=== PATIENT | female | born 1955 | race Caucasian/White ===

== ENCOUNTER 2017-08-01 11:53 | Emergency (ER) | payer OTHER, BC ==
[2017-08-01 12:00] VITALS: PULSE 74; BMI 26.2
--- NOTE | 2017-08-01 12:26 | PDOC ---
Attending Attestation - HPI HPI: 08/01/17 13:59 Pt is a 62 yo F with no PMHx who presents to the ED with headache for the past 3 days. Patient reports frontal and occipital headache, 8/10 in severity, nonradiating with no associated symptoms. Patient states reports using Tylenol in the past with relief. Note, patients headaches have been more frequent and severe however has changed in character today. Patient reports her headaches are worse at night. Patient has not been able to relieve her headaches with OTC medications and presents to the ED for further evaluation. PCP: Dr. Nascimento - Physicial Exam PE: 08/01/17 13:59 Vitals: Triage Vital signs reviewed General Appearance: no acute distress, well nourished well developed, Head: Atraumatic, normocephalic Neck: Supple;No Nuchal rigidity Chest Wall: Nontender Cardiac: Regular rate and rhythm, no murmurs, no rubs, no gallops, Lungs: Clear to auscultation bilateral, good air movement bilaterally, Abdomen: Soft, nondistended, normal bowel sounds, nontender to palpation Extremities: Full range of motion to all extremities, no cyanosis, clubbing, or edema Skin: Warm and dry, no rashes or lesions, no petechiae - Medical Decision Making 08/01/17 13:59 Documentation prepared by Ginny Rivas, acting as durable medical equipment technician for Dav Benjamin MD, MD/DO. 08/01/17 15:[address] Impression Mild volume loss which is nonspecific without evidence of acute intracranial pathology. Correlate clinically to determine further evaluation and follow-up Reported By: Rusty San MD 08/01/17 1442 <Ginny Rivas - Last Filed: 08/01/17 15:10> - Resident Resident Name: Halle Thomas - ED Attending Attestation I have performed the following: I have examined & evaluated the patient, The case was reviewed & discussed with the resident, I agree w/resident's findings & plan, Exceptions are as noted - Medical Decision Making 08/01/17 16:58 Reevaluation patient feels much better after Benadryl and Reglan. No acute findings on laboratory analysis head CT. Patient provided with outpatient neurologic follow-up Findings, the need for follow-up and strict return instructions discussed with patient. <Dav Benjamin - Last Filed: 08/01/17 16:59>
[2017-08-01] MEDS ORDERED: ACETAMINOPHEN 1000 MG/100 ML VIAL (NON FORMULARY) IVPB ONE (12:39)
--- NOTE | 2017-08-01 12:40 | PDOC ---
History of Present Illness - History of Present Illness Initial Comments: 62 year old female with history of occasional headaches presenting with headache for the past 3-4 days. The headache is a 3/10-7/10 frontal and occipital achy sensation that usually is responsive to Tylenol and Advil but lately has been much worse without great response to these remedies. Of note, the headaches have also slightly changed in presentation in that they are worse in the morning and typically better after her morning walk and towards the end of the day. She also admits to some slight photophobia but no sonophobia. Denies any focal neurological deficit, sob, presyncopal sensation, visual symptoms, or other sick symptoms. 08/01/17 12:34 <Halle Thomas - Last Filed: 08/01/17 15:35> <Dav Benjamin - Last Filed: 08/01/17 17:05> - General Chief Complaint: Headache Stated Complaint: HEADACHE Time Seen by Provider: 08/01/17 12:25 Past History - Past Medical History COPD: No Other medical history: NONE - Suicide/Smoking/Psychosocial Hx Smoking History: Never smoked Hx Alcohol Use: No Drug/Substance Use Hx: No <Halle Thomas - Last Filed: 08/01/17 15:35> <Dav Benjamin - Last Filed: 08/01/17 17:05> - Past Medical History Allergies/Adverse Reactions: Allergies Allergy/AdvReac Type Severity Reaction Status Date / Time No Known Allergies Allergy Verified 08/01/17 12:00 Home Medications: Ambulatory Orders NK [No Known Home Medication] 08/01/17 Review of Systems - Review of Systems Constitutional: No: Chills, Fever HEENTM: No: Blurred Vision Respiratory: No: Cough, Shortness of Breath Cardiac (ROS): No: Chest Pain ABD/GI: No: Diarrhea, Nausea : No: Burning, Dysuria, Urgency Integumentary: No: Bruising, Change in Color <Halle Thomas - Last Filed: 08/01/17 15:35> *Physical Exam - Vital Signs Last Vital Signs Temp Pulse Resp BP Pulse Ox 98.2 F 74 20 146/75 98 08/01/17 11:57 08/01/17 11:57 08/01/17 11:57 08/01/17 11:57 08/01/17 11:57 - Physical Exam General Appearance: Yes: Nourished, Appropriately Dressed. No: Apparent Distress HEENT: positive: EOMI, DELORES, Normal ENT Inspection, Normal Voice, TMs Normal, Other (No ttp over scalp or palpable cords.) Neck: positive: Trachea midline, Normal Thyroid, Supple, Other (Neck non tender and supple.). negative: Tender, Rigid Respiratory/Chest: positive: Lungs Clear, Normal Breath Sounds. negative: Chest Tender, Respiratory Distress, Accessory Muscle Use Cardiovascular: positive: Regular Rhythm, Regular Rate Gastrointestinal/Abdominal: positive: Normal Bowel Sounds, Flat, Soft. negative : Tender Musculoskeletal: positive: Normal Inspection. negative: CVA Tenderness Extremity: positive: Normal Capillary Refill, Normal Inspection, Normal Range of Motion Integumentary: positive: Normal Color, Dry, Warm Neurologic: positive: restaurant cashier II-XII NML intact, Fully Oriented, Alert, Normal Mood/ Affect, Normal Response, Motor Strength 5/5 <Halle Thomas - Last Filed: 08/01/17 15:35> - Vital Signs Last Vital Signs Temp Pulse Resp BP Pulse Ox 98.1 F 74 18 130/70 100 08/01/17 15:50 08/01/17 15:50 08/01/17 15:50 08/01/17 15:50 08/01/17 15:50 <Dav Benjamin - Last Filed: 08/01/17 17:05> ED Treatment Course - LABORATORY CBC & Chemistry Diagram: 08/01/17 13:44 <Halle Thomas - Last Filed: 08/01/17 15:35> - LABORATORY CBC & Chemistry Diagram: 08/01/17 13:44 - ADDITIONAL ORDERS Additional order review: Laboratory Results 08/01/17 13:44 Sodium 141 Potassium 4.0 Chloride 106 Carbon Dioxide 27 Anion Gap 8 BUN 7 Creatinine 0.6 Creat Clearance w eGFR > 60 Random Glucose 88 Calcium 8.6 Magnesium 2.1 Total Bilirubin 0.5 AST 17 ALT 24 Alkaline Phosphatase 76 Total Protein 7.0 Albumin 4.0 - Medications Given in the ED: ED Medications Discontinued Medications Generic Name Dose Route Start Last Admin Trade Name Freq PRN Reason Stop Dose Admin Acetaminophen 1,000 mg 08/01/17 12:39 08/01/17 13:44 Ofirmev Injection - IVPB 08/01/17 12:40 Not Given ONCE ONE Diphenhydramine HCl 25 mg 08/01/17 12:46 08/01/17 13:44 Benadryl Injection - IVPUSH 08/01/17 12:47 25 mg ONCE ONE Administration Metoclopramide HCl 10 mg 08/01/17 12:43 08/01/17 13:44 Reglan Injection - IVPUSH 08/01/17 12:44 10 mg ONCE ONE Administration Sodium Chloride 1,000 ml 08/01/17 12:46 08/01/17 13:44 Normal Saline - IV 08/01/17 12:47 1,000 ml ONCE ONE Administration <Dav Benjamin - Last Filed: 08/01/17 17:05> Medical Decision Making - Medical Decision Making 2 year old female with history of frequent headaches presenting with intractable headache to home Tylenol and Advil. Denies any focal neurological sign and none noted on exam. Head CT performed because of concern for intracranial mass because of worsening symptoms in the morning, negative head CT and labs WNL. Patient's symptoms improved with tylenol, reglan, and IV fluids. Will DC fatemeh with neuro follow up for migraine evaluation. 08/01/17 15:41 <Halle Thomas - Last Filed: 08/01/17 15:35> *DC/Admit/Observation/Transfer - Discharge Dispostion Admit: No <Halle Thomas - Last Filed: 08/01/17 15:35> <Dav Benjamin - Last Filed: 08/01/17 17:05> Diagnosis at time of Disposition: Headache Qualifiers: Headache type: tension-type Headache chronicity pattern: acute headache Intractability: not intractable Qualified Code(s): G44.209 - Tension-type headache, unspecified, not intractable - Discharge Dispostion Disposition: HOME Condition at time of disposition: Improved - Referrals Referrals: Marion Nascimento MD [Primary Care Provider] - - Patient Instructions Printed Discharge Instructions: DI for Headache Additional Instructions: We scanned your head and did not have any bleeds or masses inside of your head. Please follow up with Dr. Ramsey to have your symptoms evaluated for migraine. You can try Aleve at home for your headache if Tylenol does not work. Please return to the ED if your symptoms worsen, you have fevers, neck stiffness, or other new symptoms. - Post Discharge Activity
[2017-08-01] MEDS ORDERED: diphenhydrAMINE HCL 25 MG CAPSULE (FP) PO ONE (12:43)
[2017-08-01] MEDS ORDERED: METOCLOPRAMIDE HCL INJECTION 10 MG/2 ML VIAL IVPUSH ONE (12:43)
[2017-08-01] MEDS ORDERED: SODIUM CHLORIDE 0.9% 1000 ML INFUS.BAG IV ONE (12:46)
[2017-08-01] MEDS ORDERED: METOCLOPRAMIDE HCL INJECTION 10 MG/2 ML VIAL ONE (13:41)
[2017-08-01 15:25] LABS: ANION GAP 8 (8-16); BILIRUBIN,TOTAL 0.5 mg/dL (0.2-1.0); CALCIUM 8.6 mg/dL (8.5-10.1); CO2 27 mmol/L (21-32); CREATININE 0.6 mg/dL (0.55-1.02); GLUCOSE,RANDOM 88 mg/dL (74-106); MAGNESIUM 2.1 mg/dL (1.8-2.4); SGOT/AST 17 U/L (15-37); SGPT/ALT 24 U/L (12-78)
[2017-08-01 15:26] LABS: ALK PHOS 76 U/L (45-117)
[2017-08-01 15:51] VITALS: BP 130/70; TEMP 98.1
== END 2017-08-01 15:58 | disposition home or self-care (01) ==
LOC: JER 11:53
PROC: 3E033NZ Introduction of Analgesics, Hypnotics, Sedatives into Peripheral Vein, Percutaneous Approach (ICD-10-PCS; principal; 2017-08-01)
PROC: 3E033GC Introduction of Other Therapeutic Substance into Peripheral Vein, Percutaneous Approach (ICD-10-PCS; 2017-08-01)
DX: G44.209 Tension-type headache, unspecified, not intractable (principal)
CPT/HCPCS: 36415; 70450-TC; 80053; 83735; 96374; 96375; 99282-25

== ENCOUNTER 2019-01-05 18:09 | Observation (INO) | payer OTHER, BC ==
--- NOTE | 2019-01-05 18:46 | PDOC ---
Rapid Medical Evaluation Time Seen by Provider: 01/05/19 18:44 Medical Evaluation: Allergies Allergy/AdvReac Type Severity Reaction Status Date / Time No Known Allergies Allergy Verified 08/01/17 12:00 01/05/19 18:44 HPI: Sent by PCP for UTI not tolerating abx at home + fever and chills On macrobid with dysuria PE:No distress ORDERS: Septic work up Discharge Disposition - Diagnosis Dysuria - Referrals - Patient Instructions - Post Discharge Activity
--- NOTE | 2019-01-05 19:14 | PDOC ---
History of Present Illness - General Chief Complaint: Urinary Problem Stated Complaint: UTI Time Seen by Provider: 01/05/19 18:44 History Source: Patient Exam Limitations: No Limitations - History of Present Illness Initial Comments: 01/05/19 19:12 63F with PMH of HLD who presents to the ED on PCP recommendations for UTI. The patient was seen by her PUBLICATION DESIGNER for urinary discomfort and was prescribed macrobid. She took 1 day of medications. She began to develop fever, chills, and back pain , became worried and called her PCP, Dr. Nascimento, who recommended that she presents to the ER. The patient currently complains of dysuria and mild R flank pain, with intermittent fevers and chills. Past History - Past Medical History Allergies/Adverse Reactions: Allergies Allergy/AdvReac Type Severity Reaction Status Date / Time No Known Allergies Allergy Verified 01/05/19 18:45 Home Medications: Ambulatory Orders Atorvastatin Ca [Lipitor] 10 mg PO HS 01/05/19 Cholecalciferol (Vitamin D3) [Vitamin D -] 400 unit PO DAILY 01/06/19 L.acidoph,Paracasei, B.lactis [Probiotic] 1 each PO DAILY 01/06/19 Multivitamin [One-Daily Multi-Vitamin] 1 each PO DAILY 01/06/19 Nitrofurantoin Macrocrystal [Macrodantin] 100 mg PO 01/06/19 COPD: No - Immunization History Immunization Up to Date: Yes - Suicide/Smoking/Psychosocial Hx Smoking History: Never smoked Hx Alcohol Use: No Drug/Substance Use Hx: No Review of Systems - Review of Systems Able to Perform ROS?: Yes Comments:: 01/05/19 20:05 GENERAL/CONSTITUTIONAL: + for fever or chills. No weakness. HEAD, EYES, EARS, NOSE AND THROAT: No change in vision. No ear pain or discharge. No sore throat. CARDIOVASCULAR: No chest pain, palpitations, or lightheadedness. RESPIRATORY: No cough, wheezing, shortness of breath, or hemoptysis. GASTROINTESTINAL: No nausea, vomiting, diarrhea, constipation, or abdominal pain. GENITOURINARY: + for dysuria. No frequency, hematuria, or change in urination. MUSCULOSKELETAL: No joint or muscle swelling or pain. No neck or back pain. SKIN: No rash or lesions. NEUROLOGIC: No headache, numbness, tingling, focal weakness, loss of consciousness, or change in strength/sensation. Is the patient limited [place] proficient: No *Physical Exam - Vital Signs Last Vital Signs Temp Pulse Resp BP Pulse Ox 98.5 F 87 17 129/68 97 01/05/19 18:46 01/05/19 18:46 01/05/19 18:46 01/05/19 18:46 01/05/19 18:46 - Physical Exam Comments: 01/05/19 20:06 GENERAL: Well developed, well nourished. Awake and alert. No acute distress. HEENT: Normocephalic, atraumatic. Hearing grossly normal. Moist mucous membranes. PERRLA, EOMI. No conjunctival pallor. Sclera are non-icteric. NECK: Supple. Full ROM. No JVD. CARDIOVASCULAR: Regular rate and rhythm. No murmurs, rubs, or gallops. PULMONARY: No evidence of respiratory distress. Lungs clear to auscultation bilaterally. No wheezing, rales or rhonchi. ABDOMINAL: Soft. Non-tender. Non-distended. No rebound or guarding. GENITOURINARY: CVA tenderness bilaterally, R > L. MUSCULOSKELETAL: Normal range of motion at all joints. No bony deformities or tenderness. EXTREMITIES: No cyanosis. No clubbing. No edema. No calf tenderness or swelling. SKIN: Warm and dry. Normal capillary refill. No rashes. No jaundice. NEUROLOGICAL: Alert, awake, appropriate. Cranial nerves 2-12 grossly intact. Normal speech. Gait is normal without ataxia. PSYCHIATRIC: Cooperative. Good eye contact. Appropriate mood and affect. ED Treatment Course - LABORATORY CBC & Chemistry Diagram: 01/07/19 05:30 01/07/19 05:30 Medical Decision Making - Medical Decision Making 01/05/19 20:07 63F with a PMH of HLD, recently diagnosed with UTI on day 1 of macrobid, presents to the ER with fevers, chills, and dysuria with flank pain concerning for pyelo. Sepsis protocol ordered by initial provider. Will recheck UA. Pt comfortable appearing. 01/05/19 21:01 UA does not indicate UTI, likely 2/2 pt abx. Pending CTAP. 01/06/19 00:01 C shows R hydro with questionable punctate stone at UVJ. Also noted 1.5cm gallstone. Pt has nontender RUQ. Will admit for septic stone. Microblogged for admission. 01/06/19 00:[address] Cole for admission. *DC/Admit/Observation/Transfer Diagnosis at time of Disposition: Dysuria - Discharge Dispostion Disposition: HOME Condition at time of disposition: Stable - Referrals - Patient Instructions - Post Discharge Activity
[2019-01-05 20:01] LABS: VENOUS PC02 41.1 mmHg (41-51); VENOUS PH 7.43 (7.31-7.41); VENOUS PO2 43.4 mmHg (30-40)
[2019-01-05 20:03] LABS: BASO % 0.3 % (0-2.0); EOS % 0.1 % (0-4.5); HEMATOCRIT 35.5 % (32.4-45.2); HEMOGLOBIN 12.1 GM/dL (10.7-15.3); LYMPH % 6.3 % (8-40); MCH 28.9 pg (25.7-33.7); MEAN CELL VOLUME 85.2 fl (80-96); MEAN PLT VOLUME 7.8 fl (7.5-11.1); NEUT % 84.3 % (42.8-82.8); PLATELET COUNT 222 K/MM3 (134-434); RBC 4.17 M/mm3 (3.60-5.2); RDW 13.4 % (11.6-15.6); WHITE BLOOD COUNT 3.8 K/mm3 (4.0-10.0)
[2019-01-05 20:08] LABS: URINE APPEARANCE CLEAR; URINE BILIRUBIN NEGATIVE (NEGATIVE); URINE COLOR YELLOW; URINE GLUCOSE (UA) NEGATIVE (NEGATIVE); URINE KETONE NEGATIVE (NEGATIVE); URINE LEUK ESTERASE NEGATIVE (NEGATIVE); URINE NITRITE NEGATIVE (NEGATIVE); URINE PROTEIN NEGATIVE (NEGATIVE); URINE UROBILINOGEN 0.2 mg/dL (0.2-1.0)
[2019-01-05 20:19] LABS: INR 1.13 (0.83-1.09); PROTHROMBIN TIME (PATIENT) 13.4 SEC (9.7-13.0)
[2019-01-05 20:22] LABS: ACTIVATED PTT 34.5 SECONDS (25.2-36.5)
[2019-01-05 20:30] LABS: ALBUMIN 3.9 g/dl (3.4-5.0); BILIRUBIN,TOTAL 0.5 mg/dL (0.2-1); CALCIUM 9.1 mg/dL (8.5-10.1); CREATININE 0.5 mg/dL (0.55-1.3); POTASSIUM 3.8 mmol/L (3.5-5.1)
[2019-01-05] MEDS ORDERED: CEFTRIAXONE 1,000 MG in DEXTROSE 5%-WATER - 50 ML IVPB ONE (20:50)
--- NOTE | 2019-01-05 21:01 | PDOC ---
Documentation entered by Catherine Pacheco SCRIBE, acting as scribe for Mitesh Aguilar MD. Mitesh Aguilar MD: This documentation has been prepared by the Junior singh Daisy, SCRIBE, under my direction and personally reviewed by me in its entirety. I confirm that the documentation accurately reflects all work, treatment, procedures, and medical decision making performed by me. Attending Attestation - Resident Resident Name: Adán Mehta - ED Attending Attestation I have performed the following: I have examined & evaluated the patient, The case was reviewed & discussed with the resident, I agree w/resident's findings & plan - HPI HPI: 01/05/19 20:10 The patient is a 63YOF with a PMH of HLD who presents to the ER for fever, chills, dysuria and mild right flank pain. She reports being on day one of macrobid for a UTI. She called her PCP today, as she noticed her symptoms have not improved with macrobid and was told to come to the ER for further evaluation. Allergies: NKDA PCP: Dr. Nascimento - Physicial Exam PE: 01/05/19 20:58 Patient is awake and alert, well-appearing, in no distress Patient is afebrile and normotensive Normocephalic and atraumatic PERRLA, EOMI No photophobia No JVD CTA RRR Abdomen is soft, nondistended, bilateral lower quadrant tenderness is appreciated, mild suprapubic tenderness is noted; No CVA tenderness bilaterally; midline tenderness at L2/L3 is appreciated; no gross deformities noted - Medical Decision Making 01/05/19 21:00 63-year-old female recently diagnosed with UTI and treated with Macrobid ( Macrobid day 1) presents with lower abdominal pain and right flank pain Associated with tactile fevers and shaking chills. In the ER, patient is well- appearing and afebrile. Transient bacteremia is suspected. We'll obtain blood and urine cultures. Will repeat UA. Will obtain CT of abdomen and pelvis to rule out pyelonephritis/nephrolithiasis. We'll administer IV ceftriaxone. Will reassess.
[2019-01-05] MEDS ORDERED: CEFTRIAXONE 1 GM/50 ML BAG ONE (21:09)
[2019-01-05] MEDS ORDERED: SODIUM CHLORIDE 1,000 ML IV STA (21:32)
--- NOTE | 2019-01-06 00:43 | HP ---
CHIEF COMPLAINT: Right flank pain PCP: Pily HISTORY OF PRESENT ILLNESS: 63-year-old woman treated with macrobid for suspected UTI by her obgyn presents c/o fevers and chills x1 day. CT abd/pelvis showed right hydro with possible punctate stone at UVJ. ER course was notable for: (1) urine culture (2) ceftriaxone (3) CT abd/pelvis Recent Travel: no PAST MEDICAL HISTORY: dyslipidemia PAST SURGICAL HISTORY: none Social History: Smoking:no Alcohol: no Drugs: no Family History: no Allergies No Known Allergies Allergy (Verified 01/05/19 18:45) HOME MEDICATIONS: Home Medications Medication Instructions Recorded Atorvastatin Ca [Lipitor] 10 mg PO HS 01/05/19 REVIEW OF SYSTEMS CONSTITUTIONAL: Absent: diaphoresis, generalized weakness, malaise, loss of appetite, weight change present- fever, chills, HEENT: Absent: rhinorrhea, nasal congestion, throat pain, throat swelling, difficulty swallowing, mouth swelling, ear pain, eye pain, visual changes CARDIOVASCULAR: Absent: chest pain, syncope, palpitations, irregular heart rate, lightheadedness , peripheral edema RESPIRATORY: Absent: cough, shortness of breath, dyspnea with exertion, orthopnea, wheezing, stridor, hemoptysis GASTROINTESTINAL: Absent: abdominal pain, abdominal distension, nausea, vomiting, diarrhea, constipation, melena, hematochezia GENITOURINARY: Absent: dysuria, frequency, urgency, hesitancy, hematuria,genital pain present-right flank pain, MUSCULOSKELETAL: Absent: myalgia, arthralgia, joint swelling, back pain, neck pain SKIN: Absent: rash, itching, pallor HEMATOLOGIC/IMMUNOLOGIC: Absent: easy bleeding, easy bruising, lymphadenopathy, frequent infections ENDOCRINE: Absent: unexplained weight gain, unexplained weight loss, heat intolerance, cold intolerance NEUROLOGIC: Absent: , focal weakness or paresthesias, dizziness, unsteady gait, seizure, mental status changes, bladder or bowel incontinence present- headache PSYCHIATRIC: Absent: anxiety, depression, suicidal or homicidal ideation, hallucinations. PHYSICAL EXAMINATION Vital Signs - 24 hr 01/05/19 18:46 Temperature 98.5 F Pulse Rate 87 Respiratory 17 Rate Blood Pressure 129/68 O2 Sat by Pulse 97 Oximetry (%) GENERAL: Awake, alert, and fully oriented, in no acute distress. HEAD: Normal with no signs of trauma. EYES: Pupils equal, round and reactive to light, extraocular movements intact, sclera anicteric, conjunctiva clear. No lid lag. EARS, NOSE, THROAT: Ears normal, nares patent, oropharynx clear without exudates. Moist mucous membranes. NECK: Normal range of motion, supple without lymphadenopathy, JVD, or masses. LUNGS: Breath sounds equal, clear to auscultation bilaterally. No wheezes, and no crackles. No accessory muscle use. HEART: Regular rate and rhythm, normal S1 and S2 without murmur, rub or gallop. ABDOMEN: Soft, nontender, not distended, right sided CVA tenderness MUSCULOSKELETAL: Normal range of motion at all joints. No bony deformities or tenderness. UPPER EXTREMITIES: 2+ pulses, warm, well-perfused. No cyanosis. No clubbing. No peripheral edema. LOWER EXTREMITIES: 2+ pulses, warm, well-perfused. No calf tenderness. No peripheral edema. NEUROLOGICAL: Cranial nerves II-XII intact. Normal speech. Normal gait. PSYCHIATRIC: Cooperative. Good eye contact. Appropriate mood and affect. SKIN: Warm, dry, normal turgor, no rashes or lesions noted, normal capillary refill. Laboratory Results - last 24 hr 01/05/19 01/05/19 01/05/19 19:35 19:35 19:35 WBC 3.8 L RBC 4.17 Hgb 12.1 Hct 35.5 MCV 85.2 MCH 28.9 MCHC 34.0 RDW 13.4 Plt Count 222 MPV 7.8 Absolute Neuts (auto) 3.2 Neutrophils % 84.3 H Lymphocytes % 6.3 L Monocytes % 9.0 Eosinophils % 0.1 Basophils % 0.3 Nucleated RBC % 0 PT with INR 13.40 H INR 1.13 H PTT (Actin FS) 34.5 VBG pH 7.43 H POC VBG pCO2 41.1 POC VBG pO2 43.4 H VBG HCO3 26.9 VBG O2 Sat (Miguel Ángel) 77.7 VBG Base Excess 2.9 H Sodium Potassium Chloride Carbon Dioxide Anion Gap BUN Creatinine Est GFR (CKD-EPI)AfAm Est GFR (CKD-EPI)NonAf Random Glucose Lactic Acid Calcium Total Bilirubin AST ALT Alkaline Phosphatase Troponin I Total Protein Albumin Urine Color Urine Appearance Urine pH Ur Specific [place] Urine Protein Urine Glucose (UA) Urine Ketones Urine Blood Urine Nitrite Urine Bilirubin Urine Urobilinogen Ur Leukocyte Esterase 01/05/19 01/05/19 01/05/19 19:35 19:35 19:35 WBC RBC Hgb Hct MCV MCH MCHC RDW Plt Count MPV Absolute Neuts (auto) Neutrophils % Lymphocytes % Monocytes % Eosinophils % Basophils % Nucleated RBC % PT with INR INR PTT (Actin FS) VBG pH POC VBG pCO2 POC VBG pO2 VBG HCO3 VBG O2 Sat (Miguel Ángel) VBG Base Excess Sodium 133 L Potassium 3.8 Chloride 98 Carbon Dioxide 28 Anion Gap 7 L BUN 11 Creatinine 0.5 L Est GFR (CKD-EPI)AfAm 119.38 Est GFR (CKD-EPI)NonAf 103.00 Random Glucose 104 Lactic Acid 0.6 Calcium 9.1 Total Bilirubin 0.5 AST 59 H ALT 46 Alkaline Phosphatase 63 Troponin I < 0.02 Total Protein 7.0 Albumin 3.9 Urine Color Urine Appearance Urine pH Ur Specific [place] Urine Protein Urine Glucose (UA) Urine Ketones Urine Blood Urine Nitrite Urine Bilirubin Urine Urobilinogen Ur Leukocyte Esterase 01/05/19 19:42 WBC RBC Hgb Hct MCV MCH MCHC RDW Plt Count MPV Absolute Neuts (auto) Neutrophils % Lymphocytes % Monocytes % Eosinophils % Basophils % Nucleated RBC % PT with INR INR PTT (Actin FS) VBG pH POC VBG pCO2 POC VBG pO2 VBG HCO3 VBG O2 Sat (Miguel Ángel) VBG Base Excess Sodium Potassium Chloride Carbon Dioxide Anion Gap BUN Creatinine Est GFR (CKD-EPI)AfAm Est GFR (CKD-EPI)NonAf Random Glucose Lactic Acid Calcium Total Bilirubin AST ALT Alkaline Phosphatase Troponin I Total Protein Albumin Urine Color Yellow Urine Appearance Clear Urine pH 7.0 Ur Specific [place] 1.005 L Urine Protein Negative Urine Glucose (UA) Negative Urine Ketones Negative Urine Blood Negative Urine Nitrite Negative Urine Bilirubin Negative Urine Urobilinogen 0.2 Ur Leukocyte Esterase Negative Imaging studies reviewed cxr appears to have some increased pulm vascular markings b/l ASSESSMENT/PLAN: #63yo woman with right UVJ stone visible on CT abd/pelvis with resultant hydronephrosis. Symptoms suggestive of possible pyelnephrosis-complicated by renal stone, leukopenia . Afebrile in upon arrival. -observation -f/u urine and blood cultures -tylenol for pain -zofran IV prn if nausea or vomiting -IV fluid hydration -NPO for now -c/w ceftriaxone 1g q24hrs - for right UVJ stone extraction #Leukopenia-may be from underlying infection -trend cbc #DLP -c/w atorvastatin #DVT ppx- -heparin sc Visit type - Emergency Visit Emergency Visit: Yes ED Registration Date: 01/06/19 Care time: The patient presented to the Emergency Department on the above date and was hospitalized for further evaluation of their emergent condition. - New Patient This patient is new to me today: Yes Date on this admission: 01/06/19 - Critical Care Critical Care patient: No
--- NOTE | 2019-01-06 00:56 | HP ---
CHIEF COMPLAINT: PCP: HISTORY OF PRESENT ILLNESS: ER course was notable for: (1) (2) (3) Recent Travel: PAST MEDICAL HISTORY: PAST SURGICAL HISTORY: Social History: Smoking: Alcohol: Drugs: Family History: Allergies No Known Allergies Allergy (Verified 01/05/19 18:45) HOME MEDICATIONS: Home Medications Medication Instructions Recorded Atorvastatin Ca [Lipitor] 10 mg PO HS 01/05/19 REVIEW OF SYSTEMS CONSTITUTIONAL: Absent: fever, chills, diaphoresis, generalized weakness, malaise, loss of appetite, weight change HEENT: Absent: rhinorrhea, nasal congestion, throat pain, throat swelling, difficulty swallowing, mouth swelling, ear pain, eye pain, visual changes CARDIOVASCULAR: Absent: chest pain, syncope, palpitations, irregular heart rate, lightheadedness , peripheral edema RESPIRATORY: Absent: cough, shortness of breath, dyspnea with exertion, orthopnea, wheezing, stridor, hemoptysis GASTROINTESTINAL: Absent: abdominal pain, abdominal distension, nausea, vomiting, diarrhea, constipation, melena, hematochezia GENITOURINARY: Absent: dysuria, frequency, urgency, hesitancy, hematuria, flank pain, genital pain MUSCULOSKELETAL: Absent: myalgia, arthralgia, joint swelling, back pain, neck pain SKIN: Absent: rash, itching, pallor HEMATOLOGIC/IMMUNOLOGIC: Absent: easy bleeding, easy bruising, lymphadenopathy, frequent infections ENDOCRINE: Absent: unexplained weight gain, unexplained weight loss, heat intolerance, cold intolerance NEUROLOGIC: Absent: headache, focal weakness or paresthesias, dizziness, unsteady gait, seizure, mental status changes, bladder or bowel incontinence PSYCHIATRIC: Absent: anxiety, depression, suicidal or homicidal ideation, hallucinations. PHYSICAL EXAMINATION Vital Signs - 24 hr 01/05/19 18:46 Temperature 98.5 F Pulse Rate 87 Respiratory 17 Rate Blood Pressure 129/68 O2 Sat by Pulse 97 Oximetry (%) GENERAL: Awake, alert, and fully oriented, in no acute distress. HEAD: Normal with no signs of trauma. EYES: Pupils equal, round and reactive to light, extraocular movements intact, sclera anicteric, conjunctiva clear. No lid lag. EARS, NOSE, THROAT: Ears normal, nares patent, oropharynx clear without exudates. Moist mucous membranes. NECK: Normal range of motion, supple without lymphadenopathy, JVD, or masses. LUNGS: Breath sounds equal, clear to auscultation bilaterally. No wheezes, and no crackles. No accessory muscle use. HEART: Regular rate and rhythm, normal S1 and S2 without murmur, rub or gallop. ABDOMEN: Soft, nontender, not distended, normoactive bowel sounds, no guarding, no rebound, no masses. No hepatomegaly or splenomegaly. MUSCULOSKELETAL: Normal range of motion at all joints. No bony deformities or tenderness. No CVA tenderness. UPPER EXTREMITIES: 2+ pulses, warm, well-perfused. No cyanosis. No clubbing. No peripheral edema. LOWER EXTREMITIES: 2+ pulses, warm, well-perfused. No calf tenderness. No peripheral edema. NEUROLOGICAL: Cranial nerves II-XII intact. Normal speech. Normal gait. PSYCHIATRIC: Cooperative. Good eye contact. Appropriate mood and affect. SKIN: Warm, dry, normal turgor, no rashes or lesions noted, normal capillary refill. Laboratory Results - last 24 hr 01/05/19 01/05/19 01/05/19 19:35 19:35 19:35 WBC 3.8 L RBC 4.17 Hgb 12.1 Hct 35.5 MCV 85.2 MCH 28.9 MCHC 34.0 RDW 13.4 Plt Count 222 MPV 7.8 Absolute Neuts (auto) 3.2 Neutrophils % 84.3 H Lymphocytes % 6.3 L Monocytes % 9.0 Eosinophils % 0.1 Basophils % 0.3 Nucleated RBC % 0 PT with INR 13.40 H INR 1.13 H PTT (Actin FS) 34.5 VBG pH 7.43 H POC VBG pCO2 41.1 POC VBG pO2 43.4 H VBG HCO3 26.9 VBG O2 Sat (Miguel Ángel) 77.7 VBG Base Excess 2.9 H Sodium Potassium Chloride Carbon Dioxide Anion Gap BUN Creatinine Est GFR (CKD-EPI)AfAm Est GFR (CKD-EPI)NonAf Random Glucose Lactic Acid Calcium Total Bilirubin AST ALT Alkaline Phosphatase Troponin I Total Protein Albumin Urine Color Urine Appearance Urine pH Ur Specific [place] Urine Protein Urine Glucose (UA) Urine Ketones Urine Blood Urine Nitrite Urine Bilirubin Urine Urobilinogen Ur Leukocyte Esterase 01/05/19 01/05/19 01/05/19 19:35 19:35 19:35 WBC RBC Hgb Hct MCV MCH MCHC RDW Plt Count MPV Absolute Neuts (auto) Neutrophils % Lymphocytes % Monocytes % Eosinophils % Basophils % Nucleated RBC % PT with INR INR PTT (Actin FS) VBG pH POC VBG pCO2 POC VBG pO2 VBG HCO3 VBG O2 Sat (Miguel Ángel) VBG Base Excess Sodium 133 L Potassium 3.8 Chloride 98 Carbon Dioxide 28 Anion Gap 7 L BUN 11 Creatinine 0.5 L Est GFR (CKD-EPI)AfAm 119.38 Est GFR (CKD-EPI)NonAf 103.00 Random Glucose 104 Lactic Acid 0.6 Calcium 9.1 Total Bilirubin 0.5 AST 59 H ALT 46 Alkaline Phosphatase 63 Troponin I < 0.02 Total Protein 7.0 Albumin 3.9 Urine Color Urine Appearance Urine pH Ur Specific [place] Urine Protein Urine Glucose (UA) Urine Ketones Urine Blood Urine Nitrite Urine Bilirubin Urine Urobilinogen Ur Leukocyte Esterase 01/05/19 19:42 WBC RBC Hgb Hct MCV MCH MCHC RDW Plt Count MPV Absolute Neuts (auto) Neutrophils % Lymphocytes % Monocytes % Eosinophils % Basophils % Nucleated RBC % PT with INR INR PTT (Actin FS) VBG pH POC VBG pCO2 POC VBG pO2 VBG HCO3 VBG O2 Sat (Miguel Ángel) VBG Base Excess Sodium Potassium Chloride Carbon Dioxide Anion Gap BUN Creatinine Est GFR (CKD-EPI)AfAm Est GFR (CKD-EPI)NonAf Random Glucose Lactic Acid Calcium Total Bilirubin AST ALT Alkaline Phosphatase Troponin I Total Protein Albumin Urine Color Yellow Urine Appearance Clear Urine pH 7.0 Ur Specific [place] 1.005 L Urine Protein Negative Urine Glucose (UA) Negative Urine Ketones Negative Urine Blood Negative Urine Nitrite Negative Urine Bilirubin Negative Urine Urobilinogen 0.2 Ur Leukocyte Esterase Negative ASSESSMENT/PLAN:
[2019-01-06] MEDS ORDERED: ONDANSETRON 4 MG/2 ML VIAL IVPUSH PRN (00:58)
[2019-01-06] MEDS ORDERED: morphine SULFATE 4 MG/ML VIAL IVPUSH PRN (00:58)
[2019-01-06] MEDS ORDERED: ACETAMINOPHEN 325 MG TABLET (FP) PO PRN (01:36)
--- NOTE | 2019-01-06 08:41 | PN ---
Progress Note, Physician - Current Medication List Current Medications: Active Medications Acetaminophen (Tylenol -) 650 mg PO Q4H PRN PRN Reason: PAIN LEVEL 1-5 Atorvastatin Calcium (Lipitor -) 10 mg PO HS [facility] Heparin Sodium (Porcine) (Heparin -) 5,000 unit SQ BID [facility]RA Sodium Chloride (Normal Saline -) 1,000 mls @ 75 mls/hr IV ASDIR [facility]ER[facility] Ceftriaxone Sodium 1 gm/ (Dextrose) 50 mls @ 100 mls/hr IVPB DAILY@2200 [facility]ERRA; Protocol Ondansetron HCl (Zofran Injection) 4 mg IVPUSH Q6H PRN PRN Reason: NAUSEA - Objective Vital Signs: Vital Signs Temperature 99.3 F 01/06/19 06:14 Pulse Rate 80 01/06/19 06:14 Respiratory Rate 16 01/06/19 00:50 Blood Pressure 130/69 01/06/19 06:14 O2 Sat by Pulse Oximetry (%) 98 01/06/19 06:14 Cardiovascular: Yes: Regular Rate and Rhythm Respiratory: Yes: Regular, CTA Bilaterally Gastrointestinal: Yes: Normal Bowel Sounds, Soft. No: Tenderness Labs: CBC, BMP 01/05/19 19:35 01/05/19 19:35 INR, PTT INR 1.13 (0.83-1.09) H 01/05/19 19:35 Problem List - Problems (1) Hydronephrosis Assessment/Plan: -f/u urine and blood cultures -tylenol for pain -zofran IV prn if nausea or vomiting -IV fluid hydration -NPO for now -c/w ceftriaxone 1g q24hrs - for right UVJ stone extraction Code(s): N13.30 - UNSPECIFIED HYDRONEPHROSIS (2) Nephrolithiasis Assessment/Plan: as above Code(s): N20.0 - CALCULUS OF KIDNEY (3) Gallstone Code(s): K80.20 - CALCULUS OF GALLBLADDER W/O CHOLECYSTITIS W/O OBSTRUCTION
[2019-01-06] MEDS: HEPARIN NA (PORCINE) 5,000 UNITS/ML 1ML VIAL SQ SCH ×2 (11:34→21:43)
[2019-01-06] MEDS: SODIUM CHLORIDE 1,000 ML IV SCH ×2 (16:06→18:51)
--- NOTE | 2019-01-06 17:16 | EKG ---
Test Reason : Blood Pressure : / mmHG Vent. Rate : 079 BPM Atrial Rate : 079 BPM P-R Int : 170 ms QRS Dur : 082 ms QT Int : 386 ms P-R-T Axes : 059 -08 052 degrees QTc Int : 442 ms NORMAL SINUS RHYTHM NORMAL ECG NO PREVIOUS ECGS AVAILABLE Confirmed by LUDY KING MD ([id number]) on 01/06/2019 5:16:13 PM Referred By: Confirmed By:LUDY KING MD
[2019-01-06 17:42] VITALS: BMI 26.8
[2019-01-06] MEDS ORDERED: DEXTROSE 5%-WATER - 50 ML IVPB ONE (21:36)
[2019-01-06] MEDS ORDERED: cefTRIAXone SODIUM 1 GM VIAL ONE (21:36)
[2019-01-06] MEDS ORDERED: CEFTRIAXONE 1 GM in DEXTROSE 5%-WATER - 50 ML IVPB SCH (22:00)
[2019-01-06] MEDS ORDERED: ATORVASTATIN CA 10 MG TABLET (FP) PO SCH (22:00)
[2019-01-07] MEDS: SODIUM CHLORIDE 1,000 ML IV SCH ×2 (06:03→10:27)
[2019-01-07 06:50] LABS: HEMATOCRIT 32.4 % (32.4-45.2); HEMOGLOBIN 10.7 GM/dL (10.7-15.3); MCH 28.3 pg (25.7-33.7); MCHC 33.1 g/dl (32.0-36.0); MEAN CELL VOLUME 85.6 fl (80-96); PLATELET COUNT 193 K/MM3 (134-434); RBC 3.78 M/mm3 (3.60-5.2); RDW 13.5 % (11.6-15.6); WHITE BLOOD COUNT 3.9 K/mm3 (4.0-10.0)
[2019-01-07 07:24] LABS: CREATININE 0.4 mg/dL (0.55-1.3); POTASSIUM 3.8 mmol/L (3.5-5.1)
--- NOTE | 2019-01-07 08:18 | CON.GU ---
Consult Consult Specialty:: urology Referred by:: Pily Reason for Consultation:: uti/right hydronephrosis - History of Present Illness Chief Complaint: uti/renal colic History of Present Illness: Patient is a 63 year old female with history of uti who had been started on macrobid by Dr. Knight but developed increased right flank pain with severe chills. Patient presented with right flank pain to the ER. Urine analysis was WNL. Patient had no white count and normal renal function. Patient had a CT which showed a mild hydronephrosis with question of a 2mm distal right ureteral stone. Patient is currently complaining of her low back pain and denies right flank pain or nausea/vomiting/fever/chills. Patient denies gross hematuria or previous history of renal stones. - History Source History Provided By: Patient Limitations to Obtaining History: No Limitations - Alcohol/Substance Use Hx Alcohol Use: No - Smoking History Smoking history: Never smoked Have you smoked in the past 12 months: No Home Medications - Allergies Allergies/Adverse Reactions: Allergies Allergy/AdvReac Type Severity Reaction Status Date / Time No Known Allergies Allergy Verified 01/05/19 18:45 - Home Medications Home Medications: Ambulatory Orders Atorvastatin Ca [Lipitor] 10 mg PO HS 01/05/19 Cholecalciferol (Vitamin D3) [Vitamin D3 -] 400 unit PO DAILY 01/06/19 L.acidoph,Paracasei, B.lactis [Probiotic] 1 each PO DAILY 01/06/19 Multivitamin [One-Daily Multi-Vitamin] 1 each PO DAILY 01/06/19 Nitrofurantoin Macrocrystal [Macrodantin] 100 mg PO 01/06/19 Physical Exam- Vital Signs: Vital Signs Temperature 98 F 01/07/19 06:00 Pulse Rate 77 01/07/19 06:00 Respiratory Rate 20 01/07/19 06:00 Blood Pressure 133/78 01/07/19 06:00 O2 Sat by Pulse Oximetry (%) 96 01/07/19 00:00 Constitutional: Yes: Well Nourished, No Distress, Calm Eyes: Yes: WNL, Conjunctiva Clear, EOM Intact HENT: Yes: WNL, Atraumatic, Normocephalic Neck: Yes: WNL, Supple, Trachea Midline Cardiovascular: Yes: Regular Rate and Rhythm Respiratory: Yes: WNL, Regular Gastrointestinal: Yes: WNL, Normal Bowel Sounds, Soft Renal/: Yes: CVA Tenderness - Right (mild with increased low back tenderness) Kidneys: Yes: FLank Pain Right (mild right CVAT with increased low back tenderness) Pelvis: Yes: WNL Labs: CBC, BMP 01/07/19 05:30 01/07/19 05:30 Imaging - Results Cat Scan: Report Reviewed Assessment/Plan impression right hydronephrosis with question of small distal stone with negative urine/nl renal function and WBC without nausea/vomiting uti started on Macrobid prior to hospital admission with negative blood culture and pending urine culture plan urologically cleared for discharge d/c home on antibiotics/resuming macrobid is reasonable will follow-up on Thursday or Thursday 25 minutes spent with patient
[2019-01-07] MEDS: HEPARIN NA (PORCINE) 5,000 UNITS/ML 1ML VIAL SQ SCH (09:05)
[2019-01-07 10:12] VITALS: BP 142/75; PULSE 75; TEMP 97.5
--- NOTE | 2019-01-07 12:43 | DS ---
Physical Examination Vital Signs: Vital Signs Temperature 97.5 F L 01/07/19 10:00 Pulse Rate 75 01/07/19 10:00 Respiratory Rate 20 01/07/19 10:00 Blood Pressure 142/75 01/07/19 10:00 O2 Sat by Pulse Oximetry (%) 97 01/07/19 08:00 Findings/Remarks: Patient is a 63 y/o female that presented to ER with complaints of fever and chills x 1 day. Patient was given Macrobid for UTI by [employer]UD[employer] PRESIDENT. CT scan shows R hydronephrosis. Constitutional: Yes: No Distress, Calm Eyes: Yes: Conjunctiva Clear HENT: Yes: Atraumatic Cardiovascular: Yes: Regular Rate and Rhythm Respiratory: Yes: Regular, CTA Bilaterally Gastrointestinal: Yes: Normal Bowel Sounds, Soft Musculoskeletal: Yes: WNL Extremities: Yes: WNL Edema: No Neurological: Yes: Alert, Oriented Psychiatric: Yes: Alert, Oriented Labs: CBC, BMP 01/07/19 05:30 01/07/19 05:30 Discharge Summary Reason For Visit: HYDRONEPHROSIS, DYSURIA Current Active Problems Dysuria (Acute) Gallstone (Acute) Hydronephrosis (Acute) Nephrolithiasis (Acute) Procedures: Principal: CT scan Hospital Course: see progress notes Laboratory Tests 01/05/19 01/05/19 01/05/19 19:35 19:35 19:35 WBC 3.8 L RBC 4.17 Hgb 12.1 Hct 35.5 MCV 85.2 MCH 28.9 MCHC 34.0 RDW 13.4 Plt Count 222 MPV 7.8 Absolute Neuts (auto) 3.2 Neutrophils % 84.3 H Lymphocytes % 6.3 L Monocytes % 9.0 Eosinophils % 0.1 Basophils % 0.3 Nucleated RBC % 0 PT with INR 13.40 H INR 1.13 H PTT (Actin FS) 34.5 VBG pH 7.43 H POC VBG pCO2 41.1 POC VBG pO2 43.4 H VBG HCO3 26.9 VBG O2 Sat (Miguel Ángel) 77.7 VBG Base Excess 2.9 H Sodium Potassium Chloride Carbon Dioxide Anion Gap BUN Creatinine Est GFR (CKD-EPI)AfAm Est GFR (CKD-EPI)NonAf POC Glucometer Random Glucose Lactic Acid Calcium Magnesium Total Bilirubin AST ALT Alkaline Phosphatase Troponin I Total Protein Albumin Urine Color Urine Appearance Urine pH Ur Specific [place] Urine Protein Urine Glucose (UA) Urine Ketones Urine Blood Urine Nitrite Urine Bilirubin Urine Urobilinogen Ur Leukocyte Esterase 01/05/19 01/05/19 01/05/19 19:35 19:35 19:35 WBC RBC Hgb Hct MCV MCH MCHC RDW Plt Count MPV Absolute Neuts (auto) Neutrophils % Lymphocytes % Monocytes % Eosinophils % Basophils % Nucleated RBC % PT with INR INR PTT (Actin FS) VBG pH POC VBG pCO2 POC VBG pO2 VBG HCO3 VBG O2 Sat (Miguel Ángel) VBG Base Excess Sodium 133 L Potassium 3.8 Chloride 98 Carbon Dioxide 28 Anion Gap 7 L BUN 11 Creatinine 0.5 L Est GFR (CKD-EPI)AfAm 119.38 Est GFR (CKD-EPI)NonAf 103.00 POC Glucometer Random Glucose 104 Lactic Acid 0.6 Calcium 9.1 Magnesium Total Bilirubin 0.5 AST 59 H ALT 46 Alkaline Phosphatase 63 Troponin I < 0.02 Total Protein 7.0 Albumin 3.9 Urine Color Urine Appearance Urine pH Ur Specific [place] Urine Protein Urine Glucose (UA) Urine Ketones Urine Blood Urine Nitrite Urine Bilirubin Urine Urobilinogen Ur Leukocyte Esterase 01/05/19 01/06/19 01/06/19 19:42 00:42 18:48 WBC RBC Hgb Hct MCV MCH MCHC RDW Plt Count MPV Absolute Neuts (auto) Neutrophils % Lymphocytes % Monocytes % Eosinophils % Basophils % Nucleated RBC % PT with INR INR PTT (Actin FS) VBG pH POC VBG pCO2 POC VBG pO2 VBG HCO3 VBG O2 Sat (Miguel Ángel) VBG Base Excess Sodium Potassium Chloride Carbon Dioxide Anion Gap BUN Creatinine Est GFR (CKD-EPI)AfAm Est GFR (CKD-EPI)NonAf POC Glucometer 164 Random Glucose Lactic Acid 1.4 Calcium Magnesium Total Bilirubin AST ALT Alkaline Phosphatase Troponin I Total Protein Albumin Urine Color Yellow Urine Appearance Clear Urine pH 7.0 Ur Specific [place] 1.005 L Urine Protein Negative Urine Glucose (UA) Negative Urine Ketones Negative Urine Blood Negative Urine Nitrite Negative Urine Bilirubin Negative Urine Urobilinogen 0.2 Ur Leukocyte Esterase Negative 01/07/19 01/07/19 05:30 05:30 WBC 3.9 L RBC 3.78 Hgb 10.7 Hct 32.4 MCV 85.6 MCH 28.3 MCHC 33.1 RDW 13.5 Plt Count 193 MPV 8.0 Absolute Neuts (auto) Neutrophils % Lymphocytes % Monocytes % Eosinophils % Basophils % Nucleated RBC % PT with INR INR PTT (Actin FS) VBG pH POC VBG pCO2 POC VBG pO2 VBG HCO3 VBG O2 Sat (Miguel Ángel) VBG Base Excess Sodium 142 Potassium 3.8 Chloride 110 H Carbon Dioxide 25 Anion Gap 7 L BUN 10 Creatinine 0.4 L Est GFR (CKD-EPI)AfAm 128.47 Est GFR (CKD-EPI)NonAf 110.85 POC Glucometer Random Glucose 95 Lactic Acid Calcium 8.0 L Magnesium 2.0 Total Bilirubin AST ALT Alkaline Phosphatase Troponin I Total Protein Albumin Urine Color Urine Appearance Urine pH Ur Specific [place] Urine Protein Urine Glucose (UA) Urine Ketones Urine Blood Urine Nitrite Urine Bilirubin Urine Urobilinogen Ur Leukocyte Esterase Active Medications Generic Name Dose Route Start Last Admin Trade Name Freq PRN Reason Stop Dose Admin Acetaminophen 650 mg 01/06/19 01:36 Tylenol - PO Q4H PRN PAIN LEVEL 1-5 Atorvastatin Calcium 10 mg 01/06/19 22:00 01/06/19 21:41 Lipitor - PO 10 mg HS SIERRA Administration Heparin Sodium (Porcine) 5,000 unit 01/06/19 10:00 01/07/19 09:05 Heparin - SQ Not Given BID [facility] Sodium Chloride 1,000 mls @ 75 mls/hr 01/06/19 01:00 01/07/19 10:27 Normal Saline - IV 75 mls/hr ASDIR [facility]ERRA Administration Ceftriaxone Sodium 1 gm/ 50 mls @ 100 mls/hr 01/06/19 22:00 01/06/19 21:42 Dextrose IVPB 100 mls/hr DAILY@2200 SIERRA Administration Protocol Ondansetron HCl 4 mg 01/06/19 00:58 Zofran Injection IVPUSH Q6H PRN NAUSEA Microbiology 01/05/19 19:42 Urine - Urine Clean Catch Urine Culture - Final 01/05/19 19:28 Blood - Peripheral Venous Blood Culture - Preliminary NO GROWTH OBTAINED AFTER 24 HOURS, INCUBATION TO CONTINUE FOR 4 DAYS. 01/05/19 19:35 Blood - Peripheral Venous Blood Culture - Preliminary NO GROWTH OBTAINED AFTER 24 HOURS, INCUBATION TO CONTINUE FOR 4 DAYS. Condition: Stable - Instructions Diet, Activity, Other Instructions: follow up with PMD in 48hrs of discharge Follow up with Dr. Lyons continue Macrobid as prescribed return to ER if respiratory distress, chest pain, hematuria Referrals: Kyle Lyons MD [Staff Physician] - Disposition: HOME - Home Medications Comprehensive Discharge Medication List: Ambulatory Orders Atorvastatin Ca [Lipitor] 10 mg PO HS 01/05/19 Cholecalciferol (Vitamin D3) [Vitamin D -] 400 unit PO DAILY 01/06/19 L.acidoph,Paracasei, B.lactis [Probiotic] 1 each PO DAILY 01/06/19 Multivitamin [One-Daily Multi-Vitamin] 1 each PO DAILY 01/06/19 Nitrofurantoin Macrocrystal [Macrodantin] 100 mg PO 01/06/19
== END 2019-01-07 13:37 | disposition home or self-care (01) ==
LOC: JER 18:09 → JERBED 01-06 00:01 → J8W 01-06 17:20
PROVIDERS: ADMIT Family Medicine; ATTEND Family Medicine
PROC: 3E03329 Introduction of Other Anti-infective into Peripheral Vein, Percutaneous Approach (ICD-10-PCS; principal; 2019-01-06)
PROC: 3E0337Z Introduction of Electrolytic and Water Balance Substance into Peripheral Vein, Percutaneous Approach (ICD-10-PCS; 2019-01-06)
DX: N13.30 Unspecified hydronephrosis (principal); N20.1 Calculus of ureter; N20.0 Calculus of kidney; K80.20 Calculus of gallbladder without cholecystitis without obstruction; R30.0 Dysuria; E78.5 Hyperlipidemia, unspecified
CPT/HCPCS: 36415; 71045-TC-FY; 74176-TC; 80048; 80053; 81003; 82803; 82962; 83605; 83735; 84484; 85025; 85027; 85610; 85730; 87040; 87086; 93005; 93010; 99285-25; G0378; J1644; J7030

== ENCOUNTER 2019-01-08 17:14 | Inpatient (IN) | payer OTHER, BC ==
[2019-01-08] MEDS ORDERED: SODIUM CHLORIDE 1,000 ML IV STA (17:58)
[2019-01-08 18:02] LABS: URINE APPEARANCE CLOUDY; URINE BILIRUBIN NEGATIVE (NEGATIVE); URINE COLOR YELLOW; URINE GLUCOSE (UA) NEGATIVE (NEGATIVE); URINE KETONE TRACE (NEGATIVE); URINE LEUK ESTERASE NEGATIVE (NEGATIVE); URINE NITRITE NEGATIVE (NEGATIVE); URINE PROTEIN NEGATIVE (NEGATIVE)
[2019-01-08] MEDS ORDERED: CEFTRIAXONE 1 GM in DEXTROSE 5%-WATER - 50 ML IVPB ONE (18:06)
[2019-01-08] MEDS ORDERED: CEFTRIAXONE 1 GM/50 ML BAG ONE (18:10)
--- NOTE | 2019-01-08 18:10 | PDOC ---
Documentation entered by Santiago Yanez SCRIBE, acting as scribe for Shasha Peres MD. Shasha Peres MD: This documentation has been prepared by the Beau singh Xhesika, SCRIBE, under my direction and personally reviewed by me in its entirety. I confirm that the documentation accurately reflects all work, treatment, procedures, and medical decision making performed by me. Attending Attestation - Resident Resident Name: Karlo Mendoza - ED Attending Attestation I have performed the following: I have examined & evaluated the patient, The case was reviewed & discussed with the resident, I agree w/resident's findings & plan, Exceptions are as noted - HPI HPI: 01/08/19 18:08 The patient is a 63 year old female with a significant past medical history of HLD who presents to our ED with back pain. The patient was admitted here at [facility] on 01/05/19 for questionable 2mm kidney stones and was discharged on antibiotics. The patient states she endorsed a 103 fever at home and 1 episodes of vomiting this morning. The patient states she took her antibiotics last night. The patient notes she had chicken soup for lunch. The patient denies chest pain, shortness of breath or dizziness. The patient denies chills, nausea, diarrhea or constipation. The patient denies dysuria, frequency, urgency or hematuria. Allergy: NKDA Surgical History: None reported Social History: None reported PCP: Dr. Nascimento - Physicial Exam PE: 01/08/19 17:55 GENERAL: The patient is in no acute distress. ENT: Ears normal, nares patent, oropharynx clear without exudates. Moist mucous membranes. NECK: Normal range of motion, supple LUNGS: Breath sounds equal, clear to auscultation bilaterally. No wheezes, and no crackles. HEART:Regular rate and rhythm, normal S1 and S2 without murmur, rub or gallop. ABDOMEN: Soft, nontender, normoactive bowel sounds. RIGHT CVA tenderness to palpation EXTREMITIES: Normal range of motion, no edema. NEUROLOGICAL: Cranial nerves II through XII grossly intact. Normal speech. No focal neurological deficits. SKIN: Warm, Dry, normal turgor, no rashes or lesions noted. 01/08/19 18:04 - Medical Decision Making 01/08/19 18:05 63 yo F presenting with a complaint of fever S/p recent admission for kidney stone (prior to admission, was treated with antibiotics for UTI) Pt reports fever this afternoon of 103F Will do: Septic order set (fever at home, bp lower than baseline, no tachycardia) Will give IVF Will give Ceftriaxone Will admit 01/08/19 18:50 Laboratory Tests 01/07/19 01/08/19 05:30 18:22 WBC 3.9 L 3.3 L Hgb 10.7 9.8 L Hct 32.4 29.5 L Plt Count 193 177 01/08/19 18:50 01/08/19 19:10 Laboratory Tests 01/07/19 01/08/19 05:30 18:07 Sodium 135 L Potassium 3.6 Chloride 102 Carbon Dioxide 25 BUN 10 10 Creatinine 0.4 L 0.6 Random Glucose 95 101 AST 467 H ALT 234 H Will add on RUQ U/S 01/08/19 19:11 Laboratory Tests 01/08/19 17:53 Urine Glucose (UA) Negative Urine Ketones Trace H Urine Blood Negative Urine Nitrite Negative Ur Leukocyte Esterase Negative 01/08/19 20:50 THIS IS A PRELIMINARY REPORT FROM IMAGING PHYSICAL THERAPY ASSISTANT INSTRUCTOR DATE OF SERVICE: 2019-01-08 19:23:10 IMAGES: 96 EXAM: Abdominal ultrasound Limited REASON FOR EXAM: Transaminitis COMPARISON: None FINDINGS: Visualized hepatic parenchyma is homogeneous. The liver measures 15.9 cm in length. There is a 1.5 cm gallstone noted. Gallbladder wall is mildly thickened. There is mild pericholecystic fluid. Cannot exclude cholecystitis. If indicated consider evaluation with nuclear medicine HIDA scan. Common bile duct diameter within normal limits Visualized pancreas is grossly unremarkable. There is no hydronephrosis on the right. There is a punctate nonobstructing lower pole right renal calculus. There is a 1.5 cm upper pole right renal cyst. There is no additional 1.5 cm lower pole right renal cyst. Visualized IVC and aorta are patent. AP dimension of the upper abdominal aorta is 1.7 cm. Already given Ceftriaxone can add Flagyl for enteric coverage? Will admit *DC/Admit/Observation/Transfer Diagnosis at time of Disposition: Nephrolithiasis Fever Qualifiers: Fever type: unspecified Qualified Code(s): R50.9 - Fever, unspecified - Discharge Dispostion Condition at time of disposition: Stable Decision to Admit order: Yes - Referrals - Patient Instructions - Post Discharge Activity
[2019-01-08 18:31] LABS: BASO % 0.3 % (0-2.0); EOS % 0.2 % (0-4.5); HEMATOCRIT 29.5 % (32.4-45.2); HEMOGLOBIN 9.8 GM/dL (10.7-15.3); LYMPH % 5.8 % (8-40); MCH 28.2 pg (25.7-33.7); MCHC 33.1 g/dl (32.0-36.0); MEAN CELL VOLUME 85.3 fl (80-96); MEAN PLT VOLUME 7.4 fl (7.5-11.1); NEUT % 83.7 % (42.8-82.8); PLATELET COUNT 177 K/MM3 (134-434); RBC 3.46 M/mm3 (3.60-5.2); RDW 13.1 % (11.6-15.6); WHITE BLOOD COUNT 3.3 K/mm3 (4.0-10.0)
--- NOTE | 2019-01-08 18:43 | PDOC ---
History of Present Illness - General Chief Complaint: Back Pain Stated Complaint: FEVER/VOMITING Time Seen by Provider: 01/08/19 17:38 History Source: Patient Exam Limitations: No Limitations - History of Present Illness Initial Comments: 01/08/19 18:31 63 yo female pmh HLD, known Gall stone (asymptomatic) and recent discharge from hospital for renal stone (01/07) presents to the ED with F/C/N/V and continued right flank pain that started today. Pt saw Dr. Soto Pastor yesterday in hospital , noted improvement in symptoms and safe for DC with continued Macrobid treatment and f/u in clinic 01/12. Pt states when waking up today she did not feel well, had 1 episode of NB/NB vomiting, oral temp 103 and continued right flank pain. States she took Tylenol around 3 pm (oral temp in ED 98) and last took Macrobid last night. Pt denies pain on urination, blood in urine, abdominal pain, CP, SOB. Past History - Past Medical History Allergies/Adverse Reactions: Allergies Allergy/AdvReac Type Severity Reaction Status Date / Time No Known Allergies Allergy Verified 01/08/19 17:17 Home Medications: Ambulatory Orders Atorvastatin Ca [Lipitor] 10 mg PO HS 01/05/19 Cholecalciferol (Vitamin D3) [Vitamin D -] 400 unit PO DAILY 01/06/19 L.acidoph,Paracasei, B.lactis [Probiotic] 1 each PO DAILY 01/06/19 Multivitamin [One-Daily Multi-Vitamin] 1 each PO DAILY 01/06/19 Nitrofurantoin Macrocrystal [Macrodantin] 100 mg PO DAILY 01/06/19 COPD: No - Immunization History Immunization Up to Date: Yes - Suicide/Smoking/Psychosocial Hx Smoking History: Never smoked Have you smoked in the past 12 months: No Hx Alcohol Use: No Drug/Substance Use Hx: No Substance Use Type: None Hx Substance Use Treatment: No Review of Systems - Review of Systems Constitutional: Yes: Chills, Fever Respiratory: No: Shortness of Breath Cardiac (ROS): No: Chest Pain ABD/GI: Yes: Nausea, Vomiting. No: Constipated, Diarrhea : Yes: Flank Pain (right). No: Burning, Dysuria, Discharge, Frequency, Hematuria *Physical Exam - Vital Signs Last Vital Signs Temp Pulse Resp BP Pulse Ox 98.2 F 79 16 104/51 L 99 01/08/19 17:15 01/08/19 17:15 01/08/19 17:15 01/08/19 17:15 01/08/19 17:15 - Physical Exam General Appearance: Yes: Nourished, Appropriately Dressed. No: Apparent Distress HEENT: positive: EOMI Neck: positive: Supple Respiratory/Chest: positive: Lungs Clear, Normal Breath Sounds Cardiovascular: positive: Regular Rhythm, Regular Rate, S1, S2. negative: Edema , JVD, Murmur Vascular Pulses: Dorsalis-Pedis (R): 4+, Doralis-Pedis (L): 4+ Gastrointestinal/Abdominal: positive: Flat, Soft. negative: Pulsatile Mass, Protuberent, Distended, Guarding, Rebound, Tenderness ED Treatment Course - LABORATORY CBC & Chemistry Diagram: 01/08/19 18:22 01/08/19 18:07 - ADDITIONAL ORDERS Additional order review: Laboratory Results 01/08/19 01/08/19 17:53 17:50 Lactic Acid Cancelled Urine Color Yellow Urine Appearance Cloudy Urine pH 6.0 Ur Specific [place] 1.018 Urine Protein Negative Urine Glucose (UA) Negative Urine Ketones Trace H Urine Blood Negative Urine Nitrite Negative Urine Bilirubin Negative Urine Urobilinogen 1.0 Ur Leukocyte Esterase Negative 01/08/19 18:00 RBC Cancelled MCV Cancelled MCHC Cancelled RDW Cancelled MPV Cancelled Neutrophils % Cancelled Lymphocytes % Cancelled Monocytes % Cancelled Eosinophils % Cancelled Basophils % Cancelled - RADIOLOGY Radiology Studies Ordered: Category Date Time Status KIDNEY / RENAL US [US] Stat Ultrasound 01/08/19 17:53 Ordered *DC/Admit/Observation/Transfer Diagnosis at time of Disposition: Nephrolithiasis, Transaminitis Fever Qualifiers: Fever type: unspecified Qualified Code(s): R50.9 - Fever, unspecified - Discharge Dispostion Condition at time of disposition: Stable Decision to Admit order: Yes - Referrals - Patient Instructions - Post Discharge Activity
[2019-01-08 18:52] LABS: ALBUMIN 3.5 g/dl (3.4-5.0); BILIRUBIN,TOTAL 0.5 mg/dL (0.2-1); CALCIUM 8.3 mg/dL (8.5-10.1); CREATININE 0.6 mg/dL (0.55-1.3); POTASSIUM 3.6 mmol/L (3.5-5.1); TOT PROT 6.4 g/dl (6.4-8.2)
[2019-01-08] MEDS ORDERED: ACETAMINOPHEN 1000 MG/100 ML VIAL (NON FORMULARY) IVPB ONE (21:25)
[2019-01-08] MEDS ORDERED: MORPHINE SULFATE 2 MG/ML VIAL IVPUSH PRN (21:32)
[2019-01-08] MEDS ORDERED: ONDANSETRON 4 MG/2 ML VIAL IVPUSH PRN (21:32)
--- NOTE | 2019-01-08 21:32 | HP ---
CHIEF COMPLAINT: right flank pain PCP: Pily HISTORY OF PRESENT ILLNESS: 63yo woman with with RUQ pain nausea, one episode of vomiting. Admitted 01/06 for right flank pain CT abd/pelvis showed possible 2mm right UVJ stone as well as right sided hydronephrosis. Also showed 1.5 cm gallstone. Patient evaluated by Dr. Jarret Zaldivar, sent home on Macrobid. Today -U/S of gallbladder showed possible wall distention, and cholecystitis. ER course was notable for: (1) ceftriaxone (2) IV fluid (3) zofran Recent Travel: no PAST MEDICAL HISTORY: dyslipidemia PAST SURGICAL HISTORY: none Social History: Smoking:no Alcohol: no Drugs: no Family History: no Allergies Allergies No Known Allergies Allergy (Verified 01/08/19 17:17) HOME MEDICATIONS: Home Medications Medication Instructions Recorded Atorvastatin Ca [Lipitor] 10 mg PO HS 01/05/19 Cholecalciferol (Vitamin D3) 400 unit PO DAILY 01/06/19 [Vitamin D -] L.acidoph,Paracasei, B.lactis 1 each PO DAILY 01/06/19 [Probiotic] Multivitamin [One-Daily 1 each PO DAILY 01/06/19 Multi-Vitamin] Nitrofurantoin Macrocrystal 100 mg PO DAILY 01/06/19 [Macrodantin] REVIEW OF SYSTEMS CONSTITUTIONAL: Absent: , diaphoresis, generalized weakness, malaise, loss of appetite, weight change present- fever, chills HEENT: Absent: rhinorrhea, nasal congestion, throat pain, throat swelling, difficulty swallowing, mouth swelling, ear pain, eye pain, visual changes CARDIOVASCULAR: Absent: chest pain, syncope, palpitations, irregular heart rate, lightheadedness , peripheral edema RESPIRATORY: Absent: cough, shortness of breath, dyspnea with exertion, orthopnea, wheezing, stridor, hemoptysis GASTROINTESTINAL: Absent: abdominal distension, diarrhea, constipation, melena, hematochezia present- abdominal pain, nausea, vomiting, GENITOURINARY: Absent: dysuria, frequency, urgency, hesitancy, hematuria, genital pain present- flank pain, MUSCULOSKELETAL: Absent: myalgia, arthralgia, joint swelling, back pain, neck pain SKIN: Absent: rash, itching, pallor HEMATOLOGIC/IMMUNOLOGIC: Absent: easy bleeding, easy bruising, lymphadenopathy, frequent infections ENDOCRINE: Absent: unexplained weight gain, unexplained weight loss, heat intolerance, cold intolerance NEUROLOGIC: Absent: headache, focal weakness or paresthesias, dizziness, unsteady gait, seizure, mental status changes, bladder or bowel incontinence PSYCHIATRIC: Absent: anxiety, depression, suicidal or homicidal ideation, hallucinations. PHYSICAL EXAMINATION Vital Signs - 24 hr 01/08/19 01/08/19 01/08/19 17:15 18:57 20:25 Temperature 98.2 F 98.1 F 98.2 F Pulse Rate 79 Pulse Rate [ 64 68 Apical] Respiratory 16 17 18 Rate Blood Pressure 104/51 L Blood Pressure 100/64 113/50 L [Left Arm] O2 Sat by Pulse 99 100 100 Oximetry (%) GENERAL: Awake, alert, and fully oriented, in no acute distress. HEAD: Normal with no signs of trauma. EYES: Pupils equal, round and reactive to light, extraocular movements intact, sclera anicteric, conjunctiva clear. No lid lag. EARS, NOSE, THROAT: Ears normal, nares patent, oropharynx clear without exudates. Moist mucous membranes. NECK: Normal range of motion, supple without lymphadenopathy, JVD, or masses. LUNGS: Breath sounds equal, clear to auscultation bilaterally. No wheezes, and no crackles. No accessory muscle use. HEART: Regular rate and rhythm, normal S1 and S2 without murmur, rub or gallop. ABDOMEN:RUQ pain on palpation, BS+ MUSCULOSKELETAL: Normal range of motion at all joints. No bony deformities or tenderness. No CVA tenderness. UPPER EXTREMITIES: 2+ pulses, warm, well-perfused. No cyanosis. No clubbing. No peripheral edema. LOWER EXTREMITIES: 2+ pulses, warm, well-perfused. No calf tenderness. No peripheral edema. NEUROLOGICAL: Cranial nerves II-XII intact. Normal speech. Normal gait. PSYCHIATRIC: Cooperative. Good eye contact. Appropriate mood and affect. SKIN: Warm, dry, normal turgor, no rashes or lesions noted, normal capillary refill. Laboratory Results - last 24 hr 01/08/19 01/08/19 01/08/19 17:50 17:53 18:00 WBC Cancelled Corrected WBC (auto) Cancelled RBC Cancelled Hgb Cancelled Hct Cancelled MCV Cancelled MCH Cancelled MCHC Cancelled RDW Cancelled Plt Count Cancelled MPV Cancelled Absolute Neuts (auto) Cancelled Neutrophils % Cancelled Lymphocytes % Cancelled Monocytes % Cancelled Eosinophils % Cancelled Basophils % Cancelled Nucleated RBC % Cancelled Platelet Estimate Cancelled Platelet Comment Cancelled Sodium Potassium Chloride Carbon Dioxide Anion Gap BUN Creatinine Est GFR (CKD-EPI)AfAm Est GFR (CKD-EPI)NonAf Random Glucose Lactic Acid Cancelled Calcium Total Bilirubin AST ALT Alkaline Phosphatase Total Protein Albumin Urine Color Yellow Urine Appearance Cloudy Urine pH 6.0 Ur Specific [place] 1.018 Urine Protein Negative Urine Glucose (UA) Negative Urine Ketones Trace H Urine Blood Negative Urine Nitrite Negative Urine Bilirubin Negative Urine Urobilinogen 1.0 Ur Leukocyte Esterase Negative Acetaminophen 01/08/19 01/08/19 01/08/19 18:07 18:22 18:22 WBC 3.3 L Corrected WBC (auto) RBC 3.46 L Hgb 9.8 L Hct 29.5 L MCV 85.3 MCH 28.2 MCHC 33.1 RDW 13.1 Plt Count 177 MPV 7.4 L Absolute Neuts (auto) 2.7 Neutrophils % 83.7 H Lymphocytes % 5.8 L Monocytes % 10.0 Eosinophils % 0.2 D Basophils % 0.3 Nucleated RBC % 0 Platelet Estimate Platelet Comment Sodium 135 L Potassium 3.6 Chloride 102 Carbon Dioxide 25 Anion Gap 8 BUN 10 Creatinine 0.6 Est GFR (CKD-EPI)AfAm 112.43 Est GFR (CKD-EPI)NonAf 97.01 Random Glucose 101 Lactic Acid 0.8 Calcium 8.3 L Total Bilirubin 0.5 AST 467 H ALT 234 H Alkaline Phosphatase 102 Total Protein 6.4 Albumin 3.5 Urine Color Urine Appearance Urine pH Ur Specific [place] Urine Protein Urine Glucose (UA) Urine Ketones Urine Blood Urine Nitrite Urine Bilirubin Urine Urobilinogen Ur Leukocyte Esterase Acetaminophen 01/08/19 20:10 WBC Corrected WBC (auto) RBC Hgb Hct MCV MCH MCHC RDW Plt Count MPV Absolute Neuts (auto) Neutrophils % Lymphocytes % Monocytes % Eosinophils % Basophils % Nucleated RBC % Platelet Estimate Platelet Comment Sodium Potassium Chloride Carbon Dioxide Anion Gap BUN Creatinine Est GFR (CKD-EPI)AfAm Est GFR (CKD-EPI)NonAf Random Glucose Lactic Acid Calcium Total Bilirubin AST ALT Alkaline Phosphatase Total Protein Albumin Urine Color Urine Appearance Urine pH Ur Specific [place] Urine Protein Urine Glucose (UA) Urine Ketones Urine Blood Urine Nitrite Urine Bilirubin Urine Urobilinogen Ur Leukocyte Esterase Acetaminophen 13.8 Imaging studies reviewed ASSESSMENT/PLAN: #Right flank pain/RUQ likely secondary to cholecystitis. Gallbladder wall appears thickened on U/S report, RUQ tenderness on palpation. +Previous hydronephrosis appears improved, leukocytosis, UA is not suggestive of uti. + leukopenia. -admit to mewd/surg for cholecystitis -npo -iv fluid hydration -morphine iv prn for pain -zofran iv prn if nausea or vomiting -pt, ptt , type and -surgery consult for possible cholecystectomy -no antibiotics at this time #Leukopenia -will monitor cbc #DVT ppx- scd Visit type - Emergency Visit Emergency Visit: Yes ED Registration Date: 01/08/19 Care time: The patient presented to the Emergency Department on the above date and was hospitalized for further evaluation of their emergent condition. - New Patient This patient is new to me today: Yes Date on this admission: 01/09/19 - Critical Care Critical Care patient: No
[2019-01-08] MEDS ORDERED: ACETAMINOPHEN INJECTION 100 ML IVPB ONE (21:45)
[2019-01-08] MEDS: SODIUM CHLORIDE 1,000 ML IV SCH (21:57)
[2019-01-08 23:54] VITALS: BMI 30.8
[2019-01-09] MEDS: SODIUM CHLORIDE 1,000 ML IV SCH (01:46)
[2019-01-09 08:14] LABS: HEMATOCRIT 28.2 % (32.4-45.2); HEMOGLOBIN 9.5 GM/dL (10.7-15.3); MCH 28.7 pg (25.7-33.7); MCHC 33.6 g/dl (32.0-36.0); MEAN CELL VOLUME 85.3 fl (80-96); MEAN PLT VOLUME 7.6 fl (7.5-11.1); PLATELET COUNT 158 K/MM3 (134-434); RDW 13.3 % (11.6-15.6)
[2019-01-09 08:25] LABS: INR 1.23 (0.83-1.09); PROTHROMBIN TIME (PATIENT) 14.5 SEC (9.7-13.0)
[2019-01-09 08:37] LABS: CALCIUM 7.8 mg/dL (8.5-10.1); CREATININE 0.4 mg/dL (0.55-1.3); POTASSIUM 3.6 mmol/L (3.5-5.1)
[2019-01-09 09:04] LABS: WHITE BLOOD COUNT 1.8 K/mm3 (4.0-10.0)
[2019-01-09 11:24] LABS: ALBUMIN 2.8 g/dl (3.4-5.0); BILIRUBIN,DIRECT 0.2 mg/dL (0.0-0.2); BILIRUBIN,TOTAL 0.4 mg/dL (0.2-1); TOT PROT 5.2 g/dl (6.4-8.2)
--- NOTE | 2019-01-09 11:45 | CON.GI ---
Consult Consult Specialty:: GI Reason for Consultation:: elevated aminotransferases, abd pain, gallstone - History of Present Illness Chief Complaint: abd pain, fever History of Present Illness: 63 y.o. F with known large gallstone for years, nonobstructing kidney stone. Took a Macrobid yesterday, developed fever, vomiting, brought her to ER. Had never taken Macrobid before by her report. Aminotransferases markedly elevated on admission: CBC,CMP WBC 1.8 K/mm3 (4.0-10.0) L* 01/09/19 07:40 Corrected WBC (auto) Cancelled 01/08/19 18:00 RBC 3.30 M/mm3 (3.60-5.2) L 01/09/19 07:40 Hgb 9.5 GM/dL (10.7-15.3) L 01/09/19 07:40 Hct 28.2 % (32.4-45.2) L 01/09/19 07:40 MCV 85.3 fl (80-96) 01/09/19 07:40 MCH 28.7 pg (25.7-33.7) 01/09/19 07:40 MCHC 33.6 g/dl (32.0-36.0) 01/09/19 07:40 RDW 13.3 % (11.6-15.6) 01/09/19 07:40 Plt Count 158 K/MM3 (134-434) 01/09/19 07:40 MPV 7.6 fl (7.5-11.1) 01/09/19 07:40 Absolute Neuts (auto) 2.7 K/mm3 (1.5-8.0) 01/08/19 18:22 Neutrophils % 83.7 % (42.8-82.8) H 01/08/19 18:22 Lymphocytes % 5.8 % (8-40) L 01/08/19 18:22 Monocytes % 10.0 % (3.8-10.2) 01/08/19 18:22 Eosinophils % 0.2 % (0-4.5) D 01/08/19 18:22 Basophils % 0.3 % (0-2.0) 01/08/19 18:22 Nucleated RBC % 0 % (0-0) 01/08/19 18:22 Platelet Estimate Cancelled 01/08/19 18:00 Platelet Comment Cancelled 01/08/19 18:00 Sodium 143 mmol/L (136-145) 01/09/19 07:40 Potassium 3.6 mmol/L (3.5-5.1) 01/09/19 07:40 Chloride 112 mmol/L (98-107) H 01/09/19 07:40 Carbon Dioxide 27 mmol/L (21-32) 01/09/19 07:40 Anion Gap 4 MMOL/L (8-16) L 01/09/19 07:40 BUN 6 mg/dL (7-18) L 01/09/19 07:40 Creatinine 0.4 mg/dL (0.55-1.3) L 01/09/19 07:40 Est GFR (CKD-EPI)AfAm 128.47 01/09/19 07:40 Est GFR (CKD-EPI)NonAf 110.85 01/09/19 07:40 POC Glucometer 99 UNITS (80-120) 01/09/19 11:16 Random Glucose 113 mg/dL (74-106) H 01/09/19 07:40 Lactic Acid 0.8 mmol/L (0.4-2.0) 01/08/19 18:22 Calcium 7.8 mg/dL (8.5-10.1) L 01/09/19 07:40 Total Bilirubin 0.4 mg/dL (0.2-1) 01/09/19 07:40 Direct Bilirubin 0.2 mg/dL (0.0-0.2) 01/09/19 07:40 AST 283 U/L (15-37) H 01/09/19 07:40 ALT 276 U/L (13-61) H 01/09/19 07:40 Alkaline Phosphatase 95 U/L (45-117) 01/09/19 07:40 Total Protein 5.2 g/dl (6.4-8.2) L 01/09/19 07:40 Albumin 2.8 g/dl (3.4-5.0) L 01/09/19 07:40 Note that ALT had been - History Source History Provided By: Patient, Medical Record Limitations to Obtaining History: No Limitations - Past Medical History Gastrointestinal: Yes: Other (asymptomatic gallstone) Renal/: Yes: Renal Calculi - Alcohol/Substance Use Hx Alcohol Use: No - Smoking History Smoking history: Never smoked Have you smoked in the past 12 months: No Home Medications - Allergies Allergies/Adverse Reactions: Allergies Allergy/AdvReac Type Severity Reaction Status Date / Time No Known Allergies Allergy Verified 01/08/19 17:17 - Home Medications Home Medications: Ambulatory Orders Atorvastatin Ca [Lipitor] 10 mg PO HS 01/05/19 Cholecalciferol (Vitamin D3) [Vitamin D -] 400 unit PO DAILY 01/06/19 L.acidoph,Paracasei, B.lactis [Probiotic] 1 each PO DAILY 01/06/19 Multivitamin [One-Daily Multi-Vitamin] 1 each PO DAILY 01/06/19 Nitrofurantoin Macrocrystal [Macrodantin] 100 mg PO DAILY 01/06/19 Physical Exam-GI Vital Signs: Vital Signs Temperature 98.0 F 01/09/19 08:53 Pulse Rate 59 L 01/09/19 08:53 Respiratory Rate 20 01/09/19 08:53 Blood Pressure 140/68 01/09/19 08:53 O2 Sat by Pulse Oximetry (%) 96 01/09/19 05:33 ...Auscultate: Yes: Normoactive Bowel Sounds Labs: CBC, BMP 01/09/19 07:40 01/09/19 07:40 INR, PTT INR 1.23 (0.83-1.09) H 01/09/19 07:40 Imaging - Results Ultrasound: Report Reviewed, Image Reviewed Problem List - Problems (1) Fever Code(s): R50.9 - FEVER, UNSPECIFIED Qualifiers: Fever type: drug-induced Qualified Code(s): R50.2 - Drug induced fever Assessment/Plan I strongly suspect a drug reaction to nitrofurantoin. Nitrofurantoin is a known cause of liver disease, primarily hepatocellular (elevated aminotransferases). To quote from the [employer] Liver[employer] website: "Nitrofurantoin is one of the most common causes of drug induced liver disease and can cause either an acute or a chronic hepatitis-like syndrome that can be severe and lead to liver failure or cirrhosis." As she is not jaundiced and feels well I expect she will recover completely. She needs to avoid nitrofurantoin in the future (obviously). I do NOT think she has cholecystitis. Will allow low fat diet today.
[2019-01-09] MEDS: D5-1/2NS+30 MEQ KCL - 30 MEQ/1,000 ML INFUS.BAG IV SCH ×2 (12:04→21:41)
[2019-01-09] MEDS: MULTIVITAMINS (DAILY MVI) TABLET (FP) PO SCH (12:12)
[2019-01-09] MEDS: CHOLECALCIFEROL (VITAMIN D3) 400 UNIT TABLET (FP) PO SCH (12:22)
--- NOTE | 2019-01-09 13:22 | PN ---
Progress Note, Physician Chief Complaint: Vomiting x 1 abnormal liver enzymes History of Present Illness: NAD denies any pain, nausea or vomiting Family at bedside Seen by GI abnormal liver enzymes likely 2/2 to macrobid she was given outpatient for presumed UTI - Current Medication List Current Medications: Active Medications Atorvastatin Calcium (Lipitor -) 10 mg PO [facility] Cholecalciferol (Vitamin D3 -) 400 unit PO DAILY [facility] Last Admin: 01/09/19 12:22 Dose: 400 unit Potassium Chloride/Dextrose/Sod Cl (D5-1/2ns+30 Meq Kcl -) 30 meq in 1,000 mls @ 100 mls/hr IV ASDIR [facility] Last Admin: 01/09/19 12:04 Dose: 100 mls/hr Morphine Sulfate (Morphine Sulfate) 2 mg IVPUSH Q4H PRN PRN Reason: PAIN LEVEL 6-10 Multivitamins/Minerals/Vitamin C (Tab-A-Vit -) 1 tab PO DAILY [facility] Last Admin: 01/09/19 12:12 Dose: 1 tab Ondansetron HCl (Zofran Injection) 4 mg IVPUSH Q6H PRN PRN Reason: NAUSEA - Objective Vital Signs: Vital Signs Temperature 98.0 F 01/09/19 08:53 Pulse Rate 59 L 01/09/19 08:53 Respiratory Rate 20 01/09/19 08:53 Blood Pressure 140/68 01/09/19 08:53 O2 Sat by Pulse Oximetry (%) 96 01/09/19 05:33 Constitutional: Yes: Well Nourished, No Distress, Calm Cardiovascular: Yes: Regular Rate and Rhythm Respiratory: Yes: Regular Gastrointestinal: Yes: Normal Bowel Sounds, Soft Musculoskeletal: Yes: WNL Extremities: Yes: WNL Edema: No Peripheral Pulses WNL: Yes Neurological: Yes: Alert, Oriented Psychiatric: Yes: Alert, Oriented Labs: CBC, BMP 01/09/19 07:40 01/09/19 07:40 INR, PTT INR 1.23 (0.83-1.09) H 01/09/19 07:40 Problem List - Problems (1) Abnormal liver enzymes Assessment/Plan: -Trending down -monitor trend -U/S liver unremarkable except presence of gallstone Code(s): R74.8 - ABNORMAL LEVELS OF OTHER SERUM ENZYMES (2) Adverse drug reaction Assessment/Plan: to Macrobid -list as intolerance Code(s): T50.905A - ADVERSE EFFECT OF UNSP DRUG/MEDS/BIOL SUBST, INIT (3) Nephrolithiasis Assessment/Plan: -Non obstructing, no hydronephrosis, no intervention recommended at this time Code(s): N20.0 - CALCULUS OF KIDNEY (4) Gallstone Assessment/Plan: -Non obstructing, no surgical intervention indicated at this time Code(s): K80.20 - CALCULUS OF GALLBLADDER W/O CHOLECYSTITIS W/O OBSTRUCTION Assessment/Plan self ambulatory december d/c home in am if liver enzymes trending down with f/u outpatient
[2019-01-09] MEDS ORDERED: ATORVASTATIN CA 10 MG TABLET (FP) PO SCH (22:00)
[2019-01-10 06:23] LABS: BASO % 0.7 % (0-2.0); EOS % 4.7 % (0-4.5); HEMATOCRIT 28.1 % (32.4-45.2); HEMOGLOBIN 9.5 GM/dL (10.7-15.3); LYMPH % 37.4 % (8-40); MCH 28.7 pg (25.7-33.7); MEAN CELL VOLUME 84.3 fl (80-96); MONO % 13.6 % (3.8-10.2); NEUT % 43.6 % (42.8-82.8); PLATELET COUNT 197 K/MM3 (134-434); RBC 3.33 M/mm3 (3.60-5.2); RDW 13.3 % (11.6-15.6); WHITE BLOOD COUNT 3.4 K/mm3 (4.0-10.0)
[2019-01-10 06:49] LABS: ALBUMIN 2.9 g/dl (3.4-5.0); BILIRUBIN,TOTAL 0.4 mg/dL (0.2-1); CALCIUM 8.3 mg/dL (8.5-10.1); CREATININE 0.4 mg/dL (0.55-1.3); POTASSIUM 4.1 mmol/L (3.5-5.1); TOT PROT 5.6 g/dl (6.4-8.2)
[2019-01-10] MEDS ORDERED: PT OWN MED DRAWER 7, Y5N ONE (09:28)
[2019-01-10] MEDS: MULTIVITAMINS (DAILY MVI) TABLET (FP) PO SCH (09:41)
[2019-01-10] MEDS: CHOLECALCIFEROL (VITAMIN D3) 400 UNIT TABLET (FP) PO SCH (09:41)
--- NOTE | 2019-01-10 10:40 | PN ---
Progress Note (short form) - Note Progress Note: ID CONSULT DICTATED LEUKOPENIA,EOSINOPHILIA, ELEVATED LFTS LIKELY ADVERSE DRUG REACTION NITROFURANTOIN OBSERVE OFF ANTIBIOTICS
--- NOTE | 2019-01-10 12:11 | DS ---
Physical Examination Vital Signs: Vital Signs Temperature 98.3 F 01/10/19 09:00 Pulse Rate 77 01/10/19 09:00 Respiratory Rate 18 01/10/19 09:00 Blood Pressure 140/77 01/10/19 09:00 O2 Sat by Pulse Oximetry (%) 99 01/10/19 08:27 Findings/Remarks: Patient is a 63 y/o female with past medical history of RUQ pain with one episode of vomiting. She was admitted on 01/06/19 for R flank pain with CT scan of abd/pelvis showing possible 2mm UVJ stone as well as right sided hydronephrosis, 1.5mm gallstone. Patient was evaluated by Dr Howell and sent home on Macrod. Abdominal US shows gall bladder wall distention and cholecystitis. Evaluated by GI for US findings and elevated LFTs. Constitutional: Yes: No Distress, Calm Eyes: Yes: Conjunctiva Clear HENT: Yes: Atraumatic Cardiovascular: Yes: Regular Rate and Rhythm Respiratory: Yes: Regular, CTA Bilaterally Gastrointestinal: Yes: Normal Bowel Sounds, Soft Musculoskeletal: Yes: WNL Extremities: Yes: WNL Edema: Yes Edema: LLE: Trace, RLE: Trace Neurological: Yes: Alert, Oriented Psychiatric: Yes: Alert, Oriented Labs: CBC, BMP 01/10/19 05:15 01/10/19 05:15 Microbiology 01/08/19 17:53 Urine - Urine Clean Catch Urine Culture - Preliminary Group D Strep Or Entero Coccus Diphtheroid/Corynebacterium 01/08/19 18:07 Blood - Peripheral Venous Blood Culture - Preliminary NO GROWTH OBTAINED AFTER 24 HOURS, INCUBATION TO CONTINUE FOR 4 DAYS. 01/08/19 18:07 Blood - Peripheral Venous Blood Culture - Preliminary NO GROWTH OBTAINED AFTER 24 HOURS, INCUBATION TO CONTINUE FOR 4 DAYS. Discharge Summary Reason For Visit: ELEVATED TRANSAMINASE MEASUREMENT, CALCULUS Current Active Problems Abnormal liver enzymes (Acute) Adverse drug reaction (Acute) Fever (Acute) Nephrolithiasis (Acute) Transaminitis (Acute) Hospital Course: see progress notes Laboratory Tests 01/08/19 01/08/19 01/08/19 17:50 17:53 18:00 WBC Cancelled Corrected WBC (auto) Cancelled RBC Cancelled Hgb Cancelled Hct Cancelled MCV Cancelled MCH Cancelled MCHC Cancelled RDW Cancelled Plt Count Cancelled MPV Cancelled Absolute Neuts (auto) Cancelled Neutrophils % Cancelled Lymphocytes % Cancelled Monocytes % Cancelled Eosinophils % Cancelled Basophils % Cancelled Nucleated RBC % Cancelled Platelet Estimate Cancelled Platelet Comment Cancelled PT with INR INR Sodium Potassium Chloride Carbon Dioxide Anion Gap BUN Creatinine Est GFR (CKD-EPI)AfAm Est GFR (CKD-EPI)NonAf POC Glucometer Random Glucose Lactic Acid Cancelled Calcium Total Bilirubin Direct Bilirubin AST ALT Alkaline Phosphatase Total Protein Albumin Urine Color Yellow Urine Appearance Cloudy Urine pH 6.0 Ur Specific [place] 1.018 Urine Protein Negative Urine Glucose (UA) Negative Urine Ketones Trace H Urine Blood Negative Urine Nitrite Negative Urine Bilirubin Negative Urine Urobilinogen 1.0 Ur Leukocyte Esterase Negative Acetaminophen Hepatitis A IgM Ab Hep Bs Antigen Hep B Core IgM Ab Hepatitis C Antibody 01/08/19 01/08/19 01/08/19 18:07 18:22 18:22 WBC 3.3 L Corrected WBC (auto) RBC 3.46 L Hgb 9.8 L Hct 29.5 L MCV 85.3 MCH 28.2 MCHC 33.1 RDW 13.1 Plt Count 177 MPV 7.4 L Absolute Neuts (auto) 2.7 Neutrophils % 83.7 H Lymphocytes % 5.8 L Monocytes % 10.0 Eosinophils % 0.2 D Basophils % 0.3 Nucleated RBC % 0 Platelet Estimate Platelet Comment PT with INR INR Sodium 135 L Potassium 3.6 Chloride 102 Carbon Dioxide 25 Anion Gap 8 BUN 10 Creatinine 0.6 Est GFR (CKD-EPI)AfAm 112.43 Est GFR (CKD-EPI)NonAf 97.01 POC Glucometer Random Glucose 101 Lactic Acid 0.8 Calcium 8.3 L Total Bilirubin 0.5 Direct Bilirubin AST 467 H ALT 234 H Alkaline Phosphatase 102 Total Protein 6.4 Albumin 3.5 Urine Color Urine Appearance Urine pH Ur Specific [place] Urine Protein Urine Glucose (UA) Urine Ketones Urine Blood Urine Nitrite Urine Bilirubin Urine Urobilinogen Ur Leukocyte Esterase Acetaminophen Hepatitis A IgM Ab Hep Bs Antigen Hep B Core IgM Ab Hepatitis C Antibody 01/08/19 01/09/19 01/09/19 20:10 06:24 07:40 WBC 1.8 L* Corrected WBC (auto) RBC 3.30 L Hgb 9.5 L Hct 28.2 L MCV 85.3 MCH 28.7 MCHC 33.6 RDW 13.3 Plt Count 158 MPV 7.6 Absolute Neuts (auto) Neutrophils % Lymphocytes % Monocytes % Eosinophils % Basophils % Nucleated RBC % Platelet Estimate Platelet Comment PT with INR INR Sodium Potassium Chloride Carbon Dioxide Anion Gap BUN Creatinine Est GFR (CKD-EPI)AfAm Est GFR (CKD-EPI)NonAf POC Glucometer 106 Random Glucose Lactic Acid Calcium Total Bilirubin Direct Bilirubin AST ALT Alkaline Phosphatase Total Protein Albumin Urine Color Urine Appearance Urine pH Ur Specific [place] Urine Protein Urine Glucose (UA) Urine Ketones Urine Blood Urine Nitrite Urine Bilirubin Urine Urobilinogen Ur Leukocyte Esterase Acetaminophen 13.8 Hepatitis A IgM Ab Hep Bs Antigen Hep B Core IgM Ab Hepatitis C Antibody 01/09/19 01/09/19 01/09/19 07:40 07:40 11:16 WBC Corrected WBC (auto) RBC Hgb Hct MCV MCH MCHC RDW Plt Count MPV Absolute Neuts (auto) Neutrophils % Lymphocytes % Monocytes % Eosinophils % Basophils % Nucleated RBC % Platelet Estimate Platelet Comment PT with INR 14.50 H INR 1.23 H Sodium 143 Potassium 3.6 Chloride 112 H Carbon Dioxide 27 Anion Gap 4 L BUN 6 L Creatinine 0.4 L Est GFR (CKD-EPI)AfAm 128.47 Est GFR (CKD-EPI)NonAf 110.85 POC Glucometer 99 Random Glucose 113 H Lactic Acid Calcium 7.8 L Total Bilirubin 0.4 Direct Bilirubin 0.2 AST 283 H ALT 276 H Alkaline Phosphatase 95 Total Protein 5.2 L Albumin 2.8 L Urine Color Urine Appearance Urine pH Ur Specific [place] Urine Protein Urine Glucose (UA) Urine Ketones Urine Blood Urine Nitrite Urine Bilirubin Urine Urobilinogen Ur Leukocyte Esterase Acetaminophen Hepatitis A IgM Ab Hep Bs Antigen Hep B Core IgM Ab Hepatitis C Antibody 01/09/19 01/09/19 01/10/19 12:00 17:04 05:15 WBC 3.4 L Corrected WBC (auto) RBC 3.33 L Hgb 9.5 L Hct 28.1 L MCV 84.3 MCH 28.7 MCHC 34.0 RDW 13.3 Plt Count 197 D MPV 8.0 Absolute Neuts (auto) 1.5 Neutrophils % 43.6 D Lymphocytes % 37.4 D Monocytes % 13.6 H Eosinophils % 4.7 H D Basophils % 0.7 Nucleated RBC % 0 Platelet Estimate Platelet Comment PT with INR INR Sodium Potassium Chloride Carbon Dioxide Anion Gap BUN Creatinine Est GFR (CKD-EPI)AfAm Est GFR (CKD-EPI)NonAf POC Glucometer 121 Random Glucose Lactic Acid Calcium Total Bilirubin Direct Bilirubin AST ALT Alkaline Phosphatase Total Protein Albumin Urine Color Urine Appearance Urine pH Ur Specific [place] Urine Protein Urine Glucose (UA) Urine Ketones Urine Blood Urine Nitrite Urine Bilirubin Urine Urobilinogen Ur Leukocyte Esterase Acetaminophen Hepatitis A IgM Ab Negative Hep Bs Antigen Negative Hep B Core IgM Ab Negative Hepatitis C Antibody <0.1 01/10/19 05:15 WBC Corrected WBC (auto) RBC Hgb Hct MCV MCH MCHC RDW Plt Count MPV Absolute Neuts (auto) Neutrophils % Lymphocytes % Monocytes % Eosinophils % Basophils % Nucleated RBC % Platelet Estimate Platelet Comment PT with INR INR Sodium 140 Potassium 4.1 Chloride 110 H Carbon Dioxide 25 Anion Gap 6 L BUN 5 L Creatinine 0.4 L Est GFR (CKD-EPI)AfAm 128.47 Est GFR (CKD-EPI)NonAf 110.85 POC Glucometer Random Glucose 118 H Lactic Acid Calcium 8.3 L Total Bilirubin 0.4 Direct Bilirubin AST 140 H ALT 236 H Alkaline Phosphatase 102 Total Protein 5.6 L Albumin 2.9 L Urine Color Urine Appearance Urine pH Ur Specific [place] Urine Protein Urine Glucose (UA) Urine Ketones Urine Blood Urine Nitrite Urine Bilirubin Urine Urobilinogen Ur Leukocyte Esterase Acetaminophen Hepatitis A IgM Ab Hep Bs Antigen Hep B Core IgM Ab Hepatitis C Antibody Active Medications Generic Name Dose Route Start Last Admin Trade Name Michaela PRN Reason Stop Dose Admin Atorvastatin Calcium 10 mg 01/09/19 22:00 01/09/19 21:42 Lipitor - PO 10 mg HS SIERRA Administration Cholecalciferol 400 unit 01/09/19 10:00 01/10/19 09:41 Vitamin D3 - PO 400 unit DAILY SIERRA Administration Potassium Chloride/Dextrose/Sod Cl 30 meq in 1,000 mls @ 100 mls/hr 01/09/19 11:00 01/09/19 21:41 D5-1/2ns+30 Meq Kcl - IV 100 mls/hr ASDIR SIERRA Administration Multivitamins/Minerals/Vitamin C 1 tab 01/09/19 10:00 01/10/19 09:41 Tab-A-Vit - PO 1 tab DAILY SIERRA Administration Ondansetron HCl 4 mg 01/08/19 21:32 Zofran Injection IVPUSH Q6H PRN NAUSEA Microbiology 01/08/19 17:53 Urine - Urine Clean Catch Urine Culture - Preliminary Group D Strep Or Entero Coccus Diphtheroid/Corynebacterium 01/08/19 18:07 Blood - Peripheral Venous Blood Culture - Preliminary NO GROWTH OBTAINED AFTER 24 HOURS, INCUBATION TO CONTINUE FOR 4 DAYS. 01/08/19 18:07 Blood - Peripheral Venous Blood Culture - Preliminary NO GROWTH OBTAINED AFTER 24 HOURS, INCUBATION TO CONTINUE FOR 4 DAYS. Condition: Stable - Instructions Diet, Activity, Other Instructions: Follow up with PMD in 48hrs to check LFTs Follow up with GI Dr Devine for further outpatient work up continue with medication as prescribed return to ER if develop SOB, chest pain, respiratory failure Referrals: Ethan Devine MD [Staff Physician] - Disposition: HOME - Home Medications Comprehensive Discharge Medication List: Ambulatory Orders Atorvastatin Ca [Lipitor] 10 mg PO HS 01/05/19 Cholecalciferol (Vitamin D3) [Vitamin D -] 400 unit PO DAILY 01/06/19 Multivitamin [One-Daily Multi-Vitamin] 1 each PO DAILY 01/06/19
[2019-01-10 12:12] LABS: HEP.C VIRUS AB <0.1 s/co ratio (0.0-0.9)
--- NOTE | 2019-01-10 13:40 | PN ---
Progress Note (short form) - Note Progress Note: Patient seen and examined Labs reviewed Patient tolerating PO, eating well, no abodminal pain Vital Signs Temp 98.3 F 01/10/19 09:00 Pulse 77 01/10/19 09:00 Resp 18 01/10/19 09:00 BP 140/77 01/10/19 09:00 Pulse Ox 99 01/10/19 08:27 NAD Hepatic Panel Total Bilirubin 0.4 mg/dL (0.2-1) 01/10/19 05:15 Direct Bilirubin 0.2 mg/dL (0.0-0.2) 01/09/19 07:40 AST 140 U/L (15-37) H 01/10/19 05:15 ALT 236 U/L (13-61) H 01/10/19 05:15 Alkaline Phosphatase 102 U/L (45-117) 01/10/19 05:15 Albumin 2.9 g/dl (3.4-5.0) L 01/10/19 05:15 Impression: Nitrofurantoin induced transaminitis, improving Advised should never take this med again Trend daily LFTs until normalize Should have GI follow up for discharge
[2019-01-10 14:37] VITALS: BP 143/74; PULSE 78; TEMP 97.8
--- NOTE | 2019-01-10 16:43 | CONS ---
DATE OF CONSULTATION: DATE OF DICTATION: 01/10/2019 INFECTIOUS DISEASE CONSULTATION HISTORY OF PRESENT ILLNESS: The patient is a 63-year-old female who is evaluated for leukopenia. She was evaluated by her configuration engineer as an outpatient last week with urinary tract complaints. She was prescribed Macrobid. Patient states that she took the medications as prescribed. She was seen in the emergency room on January 05, 2019, sent in by her primary care physician for urinary tract infection with fever, chills. At that time, she was evaluated. A CAT scan of the abdomen and pelvis was performed that showed a 1.5-cm gallstone with a partially distended gallbladder. There was no evidence of small bowel obstruction. In addition, there was mild dilatation of the right ureter consistent with mild to moderate hydronephrosis. The patient was discharged home. She returned to the emergency room on January 08, 2019 with complaints of back pain as well as fever to 103 at home and one episode of vomiting. Cultures were obtained. She was empirically treated with ceftriaxone. Her course was complicated by development of leukopenia and elevated liver enzymes. She was seen in consultation by GI and felt to have an adverse drug reaction to nitrofurantoin; the medication was discontinued. At the present time, she is out of bed to chair. She has no complaints of abdominal pain. She denies any flank pain or suprapubic pain. No fever or chills. No recurrent vomiting. She has remained afebrile. White blood cell count was noted to be 1.8. The patient was also noted to be anemic. PAST MEDICAL HISTORY: Positive for hyperlipidemia. ALLERGIES: No known prior drug allergies. MEDICATION: Include Lipitor, vitamin D. SOCIAL HISTORY: She lives at home. She cares for her , who has heart issues and daughter who is cancer survivor. She is a nonsmoker, nondrinker. SYSTEMS REVIEW: Neurologic: No loss of consciousness, seizure activity, focal weakness. Cardiac: Negative for chest pain or palpitations. Respiratory: Negative for cough or sputum production. Gastrointestinal: As per HPI. Genitourinary: As per HPI. LABORATORY DATA: White count 3.4, 43 neutrophils, 37 lymphocytes, 13 monocytes, 5 eosinophils, hematocrit 28.1, platelets of 197. BUN 5, creatinine 0.4. Total bilirubin 0.4, alkaline phosphatase 102, AST 140, NBA 236. Blood cultures negative. Urine culture growing mixed organisms, 10 to 20 thousand enterococcus, less than 10 thousand diphtheroids. Chest x-ray, elevated left hemidiaphragm, atelectasis left base. PHYSICAL EXAMINATION: General: On exam, she is out of bed to chair, in no acute distress. Not acutely toxic appearing. Vital signs: Temperature 98.3, blood pressure 140/77, pulse 77 regular, respirations 18 per minute. HEENT: Sclerae anicteric. Cardiovascular: Heart sounds S1, S2. Lungs: Clear. Abdomen: Soft, no suprapubic or flank tenderness. No right upper quadrant tenderness. Extremities: 1+ edema. No rash noted. IMPRESSION: Leukopenia, eosinophilia, elevated liver enzymes likely secondary to adverse drug reaction (nitrofurantoin). No evidence of systemic infection. Would observe off antibiotic therapy. Follow up CBC and liver enzymes as an outpatient. Urology followup and GI followup for possible nephrolithiasis and elevated liver enzymes, respectively. Thank you for the kind referral. HOWIE RUCKER M.D. [id number]
== END 2019-01-10 14:46 | disposition home or self-care (01) | DRG 948 ==
LOC: JER 17:14 → INTOOBSV 21:30 → JERBED 21:30 → J6S 22:33 → OBSVTOIN 01-09 00:52 → J6S 01-09 20:32
PROVIDERS: ADMIT Family Medicine; ATTEND Family Medicine
DX: R74.8 Abnormal levels of other serum enzymes (principal); N13.2 Hydronephrosis with renal and ureteral calculous obstruction; K80.10 Calculus of gallbladder with chronic cholecystitis without obstruction; E78.5 Hyperlipidemia, unspecified; D72.819 Decreased white blood cell count, unspecified; T49.0X5A Adverse effect of local antifungal, anti-infective and anti-inflammatory drugs, initial encounter
CPT/HCPCS: 36415; 71045-TC-FY; 74176-TC; 76705-TC; 76775-TC; 80048; 80053; 80074; 80076; 80307; 81003; 82803; 82962; 83605; 83735; 84484; 85025; 85027; 85610; 85730; 87040; 87077; 87086; 87186; 93005; 93010; 93970-TC; 99283-25; 99285-25; G0378; J0131; J1644; J7030

== ENCOUNTER 2019-11-15 10:00 | Inpatient (IN) | payer OTHER, BC ==
[2019-11-11 13:58] VITALS: BMI 28.3
--- NOTE | 2020-02-21 08:20 | HP ---
History & Physical Update - History History: No Change - Physical Physical: No Change - Assessment Assessment: No Change - Plan Plan: No Change (H&P revied , no changes for TVH, A.P repair)
[2020-02-21] MEDS ORDERED: ceFAZolin SODIUM 1 GM VIAL IVPB ONE (10:11)
[2020-02-21] MEDS ORDERED: metroNIDAZOLE 0.75% VAGINAL GEL 70 GM TUBE ONE (11:50)
[2020-02-21] MEDS ORDERED: ONDANSETRON 4 MG/2 ML VIAL IVPUSH PRN (12:33)
[2020-02-21] MEDS ORDERED: IBUPROFEN 600 MG TABLET (FP) PO PRN (12:33)
[2020-02-21] MEDS ORDERED: IBUPROFEN 800 MG/8 ML IJ IVPB PRN (12:33)
--- NOTE | 2020-02-21 12:42 | OP ---
Operative Note - Note: Operative Date: 02/21/20 Pre-Operative Diagnosis: complete uterovaginal prolapse Operation: TVH, cystorectocele repair, pernioplasty Findings: procedentia Surgeon: Jabier Richardson Blood Bank Assistant: Zeynep Plasencia Anesthesiologist/MECHANICAL CAD DRAFTER: Rene Dubon Anesthesia: General Specimens Removed: uterus. ant. and post, vaginal mucosa Estimated Blood Loss (mls): 150 Drains & Tubes with Location: rodgers, vaginal packing Drains, Volume Out (mls): 800 Blood Volume Replaced (mls): 0 Fluid Volume Replaced (mls): 800 Operative Report Dictated: Yes
[2020-02-21] MEDS ORDERED: ELECTROLYTE-148 SOLN 1,000 ML IV SCH (12:45)
[2020-02-21] MEDS ORDERED: IBUPROFEN 800 MG/8 ML IJ IVPB ONE ×2 (12:45→12:55)
[2020-02-21] MEDS ORDERED: HYDROmorphone *PCA* 10MG/50ML DISP.SYRIN PCA ONE (13:30)
[2020-02-21] MEDS ORDERED: HYDROmorphone *PCA* 10MG/50ML DISP.SYRIN ONE (13:31)
[2020-02-21] MEDS ORDERED: HYDROmorphone *PCA* 10MG/50ML DISP.SYRIN PCA SCH (14:00)
[2020-02-21] MEDS: LACTATED RINGERS SOLUTION 1,000 ML IV SCH (15:00)
[2020-02-21] MEDS ORDERED: DEXTROSE 5%-WATER - 50 ML IVPB ONE (16:49)
[2020-02-21] MEDS ORDERED: ceFAZolin SODIUM 1 GM VIAL ONE (16:49)
[2020-02-21] MEDS: CEFAZOLIN 1 GM in DEXTROSE 5%-WATER - 50 ML IVPB SCH (17:07)
[2020-02-21] MEDS ORDERED: PCA PUMP NR ONE (17:50)
[2020-02-21] MEDS: ATORVASTATIN CA 10 MG TABLET (FP) PO SCH (22:18)
[2020-02-22] MEDS: LACTATED RINGERS SOLUTION 1,000 ML IV SCH ×2 (01:38→14:30)
[2020-02-22] MEDS ORDERED: ceFAZolin SODIUM 1 GM VIAL ONE ×2 (01:43→09:37)
[2020-02-22] MEDS ORDERED: DEXTROSE 5%-WATER - 50 ML IVPB ONE ×2 (01:44→09:38)
[2020-02-22] MEDS: CEFAZOLIN 1 GM in DEXTROSE 5%-WATER - 50 ML IVPB SCH ×2 (01:45→10:05)
[2020-02-22] MEDS ORDERED: BISACODYL 5 MG TABLET.DR (FP) PO ONE (07:36)
[2020-02-22 07:42] LABS: HEMATOCRIT 28.3 % (32.4-45.2); HEMOGLOBIN 9.2 GM/dL (10.7-15.3); MCH 28.3 pg (25.7-33.7); MCHC 32.5 g/dl (32.0-36.0); MEAN PLT VOLUME 8.3 fl (7.5-11.1); PLATELET COUNT 243 K/MM3 (134-434); RBC 3.25 M/mm3 (3.60-5.2); RDW 14.3 % (11.6-15.6); WHITE BLOOD COUNT 8.8 K/mm3 (4.0-10.0)
[2020-02-22 08:01] LABS: CALCIUM 8.7 mg/dL (8.5-10.1); CREATININE 0.5 mg/dL (0.55-1.3); POTASSIUM 4.1 mmol/L (3.5-5.1)
--- NOTE | 2020-02-22 09:07 | CONSULT ---
Consult - Past Medical History Cardio/Vascular: Yes: Hyperlipdemia Gastrointestinal: Yes: Other (asymptomatic gallstone) Renal/: Yes: Renal Calculi - Alcohol/Substance Use Hx Alcohol Use: No - Smoking History Smoking history: Never smoked Have you smoked in the past 12 months: No Home Medications - Allergies Allergies/Adverse Reactions: Allergies Allergy/AdvReac Type Severity Reaction Status Date / Time nitrofurantoin AdvReac Intermediate Verified 02/21/20 07:57 - Home Medications Home Medications: Ambulatory Orders Atorvastatin Ca [Lipitor] 10 mg PO HS 01/05/19 Cholecalciferol (Vitamin D3) [Vitamin D -] 400 unit PO DAILY 01/06/19 Multivitamin [One-Daily Multi-Vitamin] 1 each PO DAILY 01/06/19 Lactobacillus Combination No.4 [Probiotic] 1 each PO ACDIN 02/21/20 Ibuprofen [Motrin -] 600 mg PO QID #28 tablet 02/22/20 Review of Systems - Review of Systems Cardiovascular: reports: No Symptoms Respiratory: reports: No Symptoms Gastrointestinal: reports: No Symptoms Genitourinary: reports: Other (pelvic pressure) Physical Exam Vital Signs: Vital Signs Temperature 98.7 F 02/22/20 06:00 Pulse Rate 75 02/22/20 06:00 Respiratory Rate 18 02/22/20 06:00 Blood Pressure 129/57 L 02/22/20 06:00 O2 Sat by Pulse Oximetry (%) 98 02/22/20 05:30 Cardiovascular: Yes: Regular Rate and Rhythm Respiratory: Yes: Regular, CTA Bilaterally Gastrointestinal: Yes: Normal Bowel Sounds, Soft Edema: No Labs: CBC, BMP 02/22/20 06:35 02/22/20 06:35 Problem List - Problems (1) Uterovaginal prolapse, complete Assessment/Plan: Pre-Operative Diagnosis: complete uterovaginal prolapse Operation: TVH, cystorectocele repair, pernioplasty Findings: procedentia Surgeon: Jabier Richardson Per surgery follow labs Code(s): N81.3 - COMPLETE UTEROVAGINAL PROLAPSE (2) HLD (hyperlipidemia) Code(s): E78.5 - HYPERLIPIDEMIA, UNSPECIFIED (3) Anemia Assessment/Plan: follow labs Code(s): D64.9 - ANEMIA, UNSPECIFIED
--- NOTE | 2020-02-22 09:50 | OP ---
DATE OF OPERATION: 02/21/2020 PREOPERATIVE DIAGNOSIS: Total uterovaginal prolapse. POSTOPERATIVE DIAGNOSIS: Total uterovaginal prolapse. PROCEDURE: Transvaginal hysterectomy; cystocele, rectocele repair and perineoplasty. SURGEON: Jabier Richardson MD BUCKLE GLUER: Zeynep Plasencia MD ESTIMATED BLOOD LOSS: 150 mL. DESCRIPTION OF PROCEDURE: Patient was taken to the operating room, had adequate general anesthesia. In dorsal lithotomy position, examination under anesthesia revealed complete procidentia. Uterus was out of the vagina, large cystocele with a large rectocele noted. Uterus appeared to be normal size. Adnexa: No masses were palpable. Then with a weighted speculum in the vagina, anterior lip of the cervix was grasped with 2 single-tooth tenacula, paravaginal area and anterior and posterior vaginal mucosa infiltrated with vasopressin, then a circumferential incision was made around the cervix. Posterior vaginal mucosa was dissected with sharp and blunt dissection from the cervix, and peritoneum was grasped with an Allis clamp and entered with Metzenbaum scissors. The peritoneum was sutured to the vaginal mucosa, then anterior vaginal mucosa was dissected from the cervix with blunt and sharp dissection with Metzenbaum scissors. Bladder was pushed up. The uterosacral ligament was identified bilaterally, clamped and cut bilaterally, and these sutures were held, then bladder was lifted. The parametrial area was grasped with Kristie clamp, cut, and the clamp replaced with 0 Vicryl suture bilaterally. At this time, anterior peritoneum was grasped with a pickup and entered with Metzenbaum scissors. Bladder was elevated with a retractor, and uterine artery was identified bilaterally, clamped with Kristie clamp and cut, and clamp was replaced with 0 Vicryl suture bilaterally. Parametrium also clamped with Kristie clamp bilaterally, clamped and cut, and the clamp replaced with 0 Vicryl suture bilaterally. The pedicle was reached after peritoneum was grasped with Kristie clamp and cut bilaterally, and then pedicles were tied first with 2-0 Vicryl tie and then sutured with interrupted suture of 2-0 Vicryl suture. These pedicles were also held, then peritoneal cavity several times irrigated. All the pedicles inspected, and no bleeding was seen. All the sponge and instrument counts were correct, and peritoneum was closed in a pursestring fashion with a 0 Vicryl suture. Then examination showed that peritoneum with complete closure. Then cystocele repair was started by infiltrating anterior vaginal mucosa with vasopressin, and then vaginal mucosa was undermined with Metzenbaum scissors and from bladder. Bladder was dissected from the anterior vaginal mucosa with blunt and sharp dissection, and then the excess vaginal mucosa was cut, and then cystocele repair with a pursestring suture of 2-0 Vicryl, and then interrupted suture of 3-0 Vicryl mattress sutures. Then the anterior vaginal mucosa was closed with continuous suture of 2-0 Vicryl, and then uterosacral ligament was fixed to the vaginal angle with 0 Vicryl LigaSure sutures bilaterally. Then posterior rectocele was started with grasping the posterior vaginal mucosa, perineum, and skin with Allis clamp, and then excess skin and mucosa were cut, then posterior vaginal mucosa was undermined with Metzenbaum scissors and the posterior vaginal mucosa was from rectum with blunt and sharp dissection, and then with several mattress sutures rectocele was repaired. Excess vaginal mucosa was cut, and the posterior vaginal mucosa was closed with 0 Vicryl suture continuously. Then perineum and muscle were brought together with interrupted suture of [id number] 0 Vicryl, and then posterior perineorrhaphy done in episiotomy-like fashion with a 3-0 Vicryl suture. Recinos was inserted, 800 mL of clear urine drained. No active vaginal bleeding was seen. Vagina was irrigated and then packed with 1-inch gauze with MetroGel cream. Rectal exam showed no defect. Patient tolerated the procedure well, left the OR in good condition. Vira [id number]
[2020-02-22] MEDS: ENOXAPARIN NA (PORCINE) 40 MG/0.4 ML DISP.SYRIN SQ SCH (10:06)
[2020-02-22] MEDS ORDERED: PCA PUMP NR ONE (10:08)
--- NOTE | 2020-02-22 17:43 | PN ---
Progress Note (short form) - Note Progress Note: pod 1s/p TVH has mild low abdominal pain, passing gas , was able to void after packing was removed , no vaginal bleeding CBC, BMP 02/22/20 06:35 02/22/20 06:35 Last Vital Signs Temp Pulse Resp BP Pulse Ox 99.2 F 78 20 124/60 100 02/22/20 17:08 02/22/20 17:08 02/22/20 17:08 02/22/20 17:08 02/22/20 10:00 abdomen soft, no distension, no cva no vaginal bleeding no calf tenderness no vaginal discharge pod 1, afebrile . anemia , asymptomatic plan ambulate, advance diet DVT prophylaxsis
[2020-02-22] MEDS: oxyCODONE HCL 5 MG TABLET PO PRN (19:47)
[2020-02-22] MEDS: ATORVASTATIN CA 10 MG TABLET (FP) PO SCH (21:37)
[2020-02-23 07:47] LABS: BASO % 0.5 % (0-2.0); EOS % 2.1 % (0-4.5); HEMOGLOBIN 8.6 GM/dL (10.7-15.3); LYMPH % 17.6 % (8-40); MCH 28.5 pg (25.7-33.7); MCHC 33.1 g/dl (32.0-36.0); MEAN PLT VOLUME 8.6 fl (7.5-11.1); MONO % 9.2 % (3.8-10.2); NEUT % 70.6 % (42.8-82.8); PLATELET COUNT 248 K/MM3 (134-434); RBC 3.02 M/mm3 (3.60-5.2); RDW 13.8 % (11.6-15.6); WHITE BLOOD COUNT 6.8 K/mm3 (4.0-10.0)
[2020-02-23 08:08] LABS: ALBUMIN 3.2 g/dl (3.4-5.0); BILIRUBIN,TOTAL 0.4 mg/dL (0.2-1); BLOOD UREA NITROGEN 7.1 mg/dL (7-18); CALCIUM 8.5 mg/dL (8.5-10.1); CREATININE 0.5 mg/dL (0.55-1.3); POTASSIUM 4.1 mmol/L (3.5-5.1); TOT PROT 5.8 g/dl (6.4-8.2)
--- NOTE | 2020-02-23 08:31 | PN ---
Progress Note, Physician History of Present Illness: feels better - Current Medication List Current Medications: Active Medications Atorvastatin Calcium (Lipitor -) 10 mg PO HS SIERRA Last Admin: 02/22/20 21:37 Dose: 10 mg Documented by: Diphenhydramine HCl (Benadryl Injection -) 12.5 mg IVPUSH ONCE PRN PRN Reason: FOR ITCHING Enoxaparin Sodium (Lovenox -) 40 mg SQ DAILY SIERRA Last Admin: 02/22/20 10:06 Dose: 40 mg Documented by: Fentanyl (Sublimaze Injection -) 50 mcg IVPUSH [id number] PRN PRN Reason: PAIN-PACU ORDER X 4 DOSES ONLY Ibuprofen (Caldolor Injection -) 800 mg IVPB Q6H PRN PRN Reason: Fever - If PO not effective. Last Admin: 02/22/20 13:21 Dose: 800 mg Documented by: Ibuprofen (Motrin -) 600 mg PO Q6H PRN PRN Reason: FEVER Ondansetron HCl (Zofran Injection) 4 mg IVPUSH Q6H PRN PRN Reason: NAUSEA Last Admin: 02/22/20 11:55 Dose: 4 mg Documented by: Oxycodone HCl (Roxicodone -) 5 mg PO Q4H PRN PRN Reason: PAIN LEVEL 1-5 Last Admin: 02/22/20 19:47 Dose: 5 mg Documented by: - Objective Vital Signs: Vital Signs Temperature 98.7 F 02/23/20 05:00 Pulse Rate 79 02/23/20 05:00 Respiratory Rate 20 02/23/20 05:00 Blood Pressure 142/72 02/23/20 05:00 O2 Sat by Pulse Oximetry (%) 100 02/22/20 10:00 Cardiovascular: Yes: Regular Rate and Rhythm Respiratory: Yes: Regular, CTA Bilaterally Gastrointestinal: Yes: Normal Bowel Sounds, Soft, Tenderness (minimal) Labs: CBC, BMP 02/23/20 06:25 02/23/20 06:25 Problem List - Problems (1) Uterovaginal prolapse, complete Assessment/Plan: Pre-Operative Diagnosis: complete uterovaginal prolapse Operation: TVH, cystorectocele repair, pernioplasty Findings: procedentia Surgeon: Jabier Richardson Per surgery follow labs Code(s): N81.3 - COMPLETE UTEROVAGINAL PROLAPSE (2) HLD (hyperlipidemia) Code(s): E78.5 - HYPERLIPIDEMIA, UNSPECIFIED (3) Anemia Assessment/Plan: follow labs todays pending Code(s): D64.9 - ANEMIA, UNSPECIFIED
[2020-02-23] MEDS: ENOXAPARIN NA (PORCINE) 40 MG/0.4 ML DISP.SYRIN SQ SCH (09:10)
[2020-02-23] MEDS: oxyCODONE HCL 5 MG TABLET PO PRN (09:10)
--- NOTE | 2020-02-23 14:33 | PATH ---
Surgical Pathology Report Patient Name: XAVIER CORCORAN Med. Rec. #: [id number] /Age/Gender: 1955 (Age: 64) / F Account: [id number] Location: [facility] MED/SURG Taken: 02/21/2020 Received: 02/21/2020 Reported: 02/23/2020 Physicians: Jabier Richardson M.D. Specimen(s) Received A: UTERUS AND CERVIX B: VAGINAL MUCOSA Clinical History Uterovaginal prolapse, postmenopausal bleeding Final Diagnosis A. UTERUS AND CERVIX, HYSTERECTOMY: ADENOMYOSIS. ATROPHIC/WEAKLY PROLIFERATIVE ENDOMETRIUM. CERVIX WITH SQUAMOUS METAPLASIA, ACUTE AND CHRONIC CERVICITIS. B. VAGINA MUCOSA, EXCISION: SQUAMOUS MUCOSA WITH SUBEPITHELIAL FIBROSIS AND CHRONIC INFLAMMATION. NEGATIVE FOR DYSPLASIA. Electronically Signed Tammi Selby M.D. Gross Description A. Received in formalin labeled "uterus and cervix," is a 72 g uterus with an attached cervix and no attached adnexa. The specimen measures 8.4 cm from superior to inferior, 4.2 cm from left to right and 2.8 cm from anterior to posterior. The serosa is dasilva-elizabeth and smooth. The ectocervix is dasilva, smooth and glistening with attached vaginal mucosa. The endocervix is unremarkable. The endometrial cavity measures 4.3 cm in length and 1.8 cm from cornu to cornu. The endometrium is dasilva and averages 0.1 cm in thickness. The myometrium is dasilva mario and averages 1.3 cm in thickness. No intramural nodules are identified. Sneller Hand sections are submitted in 6 cassettes as follows: 1-anterior cervix; 2-posterior cervix; 4-3-jddrnnsl endomyometrium; 8-0-dnpoifwlc endomyometrium. B. Received in formalin labeled "vaginal wall," is an 8.0 x 4.0 x 0.7 cm aggregate of multiple unoriented portions of dasilva soft tissue, consistent with vaginal wall. Sneller Hand sections are submitted in one cassette. 02/22/2020 [facility]02/22/2020
[2020-02-23] MEDS ORDERED: IRON SUCROSE INJECTION 300 MG in SODIUM CHLORIDE 235 ML IVPB ONE (17:00)
[2020-02-23] MEDS: ATORVASTATIN CA 10 MG TABLET (FP) PO SCH (21:35)
[2020-02-24 07:44] LABS: BASO % 1.1 % (0-2.0); HEMATOCRIT 24.7 % (32.4-45.2); HEMOGLOBIN 8.1 GM/dL (10.7-15.3); LYMPH % 24.7 % (8-40); MCH 28.6 pg (25.7-33.7); MCHC 32.9 g/dl (32.0-36.0); MEAN PLT VOLUME 8.3 fl (7.5-11.1); MONO % 10.2 % (3.8-10.2); PLATELET COUNT 209 K/MM3 (134-434); RBC 2.83 M/mm3 (3.60-5.2); WHITE BLOOD COUNT 4.9 K/mm3 (4.0-10.0)
--- NOTE | 2020-02-24 08:39 | PN ---
Progress Note (short form) - Note Progress Note: pod3 , has no pain, no vaginal bleeding , no dizziness,no SOB, ambulating well CBC, BMP 02/24/20 06:24 02/23/20 06:25 Last Vital Signs Temp Pulse Resp BP Pulse Ox 98.1 F 80 20 127/82 98 02/24/20 05:00 02/24/20 05:00 02/24/20 05:00 02/24/20 05:00 02/23/20 21:00 abdomen soft, no distension, no cva , no guarding, BS are present no vaginal bleeding no calf tenderness impression pod 3, s/p TVH anemia , asymptomatic, wants to go home , asymptomatic instruction given follow up 2 weeks , iron , vit
--- NOTE | 2020-02-24 08:42 | DS ---
Physical Exam-ASSOCIATE TECHNICIAN Vital Signs: Vital Signs Temperature 98.1 F 02/24/20 05:00 Pulse Rate 80 02/24/20 05:00 Respiratory Rate 20 02/24/20 05:00 Blood Pressure 127/82 02/24/20 05:00 O2 Sat by Pulse Oximetry (%) 98 02/23/20 21:00 Constitutional: Yes: Well Nourished, No Distress, Calm Eyes: Yes: WNL, EOM Intact HENT: Yes: WNL Neck: Yes: WNL Cardiovascular: Yes: WNL Respiratory: Yes: WNL, Regular, CTA Bilaterally Gastrointestinal: Yes: WNL, Normal Bowel Sounds, Soft Renal/: Yes: WNL External Genitalia: Yes: Normal Vaginal Exam: Yes: Normal Breast(s): Yes: WNL Musculoskeletal: Yes: WNL Extremities: Yes: WNL Integumentary: Yes: WNL Neurological: Yes: WNL, Alert, Oriented ...Motor Strength: WNL Psychiatric: Yes: WNL, Alert, Oriented Labs: CBC, BMP 02/24/20 06:24 02/23/20 06:25 Discharge Summary Reason For Visit: UTEROVAGINAL PROLAPSE;POSTMENOPAUSAL BLEEDING Current Active Problems Anemia (Acute) HLD (hyperlipidemia) (Acute) Uterovaginal prolapse, complete (Acute) Procedures: Principal: TVH, anterior and posterior repair , pernioplasty Hospital Course: anemia Health Concerns: anemia Plan of Treatment: iron, vit Condition: Good - Instructions Diet, Activity, Other Instructions: follow up office 2 weeks, if fever, pain, heavy vaginal bleeding, difficulty with voiding . dizziness , headache, weakness to ER Referrals: Jabier Richardson MD [Staff Physician] - Disposition: HOME - Home Medications Comprehensive Discharge Medication List: Ambulatory Orders Atorvastatin Ca [Lipitor] 10 mg PO HS 01/05/19 Cholecalciferol (Vitamin D3) [Vitamin D -] 400 unit PO DAILY 01/06/19 Multivitamin [One-Daily Multi-Vitamin] 1 each PO DAILY 01/06/19 Lactobacillus Combination No.4 [Probiotic] 1 each PO ACDIN 02/21/20 Ibuprofen [Motrin -] 600 mg PO QID #28 tablet 02/22/20 Ciprofloxacin HCl 500 mg PO BID #14 tablet 02/24/20 Ferrous Sulfate 325 mg PO BID #60 tablet 02/24/20
[2020-02-24] MEDS ORDERED: PT OWN MED DRAWER 7, Y5N ONE (09:05)
[2020-02-24] MEDS: ENOXAPARIN NA (PORCINE) 40 MG/0.4 ML DISP.SYRIN SQ SCH (09:07)
--- NOTE | 2020-02-24 09:13 | PN ---
Progress Note, Physician - Current Medication List Current Medications: Active Medications Atorvastatin Calcium (Lipitor -) 10 mg PO HS SIERRA Last Admin: 02/23/20 21:35 Dose: 10 mg Documented by: Diphenhydramine HCl (Benadryl Injection -) 12.5 mg IVPUSH ONCE PRN PRN Reason: FOR ITCHING Enoxaparin Sodium (Lovenox -) 40 mg SQ DAILY [facility] Last Admin: 02/24/20 09:07 Dose: 40 mg Documented by: Fentanyl (Sublimaze Injection -) 50 mcg IVPUSH [id number] PRN PRN Reason: PAIN-PACU ORDER X 4 DOSES ONLY Ibuprofen (Caldolor Injection -) 800 mg IVPB Q6H PRN PRN Reason: Fever - If PO not effective. Last Admin: 02/22/20 13:21 Dose: 800 mg Documented by: Ibuprofen (Motrin -) 600 mg PO Q6H PRN PRN Reason: FEVER Last Admin: 02/23/20 18:14 Dose: 600 mg Documented by: Ondansetron HCl (Zofran Injection) 4 mg IVPUSH Q6H PRN PRN Reason: NAUSEA Last Admin: 02/22/20 11:55 Dose: 4 mg Documented by: Oxycodone HCl (Roxicodone -) 5 mg PO Q4H PRN PRN Reason: PAIN LEVEL 1-5 Last Admin: 02/23/20 09:10 Dose: 5 mg Documented by: - Objective Vital Signs: Vital Signs Temperature 98.1 F 02/24/20 05:00 Pulse Rate 80 02/24/20 05:00 Respiratory Rate 20 02/24/20 05:00 Blood Pressure 127/82 02/24/20 05:00 O2 Sat by Pulse Oximetry (%) 98 02/23/20 21:00 Cardiovascular: Yes: Regular Rate and Rhythm Respiratory: Yes: Regular, CTA Bilaterally Gastrointestinal: Yes: Normal Bowel Sounds, Soft Labs: CBC, BMP 02/24/20 06:24 02/23/20 06:25 Problem List - Problems (1) Uterovaginal prolapse, complete Assessment/Plan: Pre-Operative Diagnosis: complete uterovaginal prolapse Operation: TVH, cystorectocele repair, pernioplasty Findings: procedentia Surgeon: Jabier Richardson Per surgery follow labs Code(s): N81.3 - COMPLETE UTEROVAGINAL PROLAPSE (2) HLD (hyperlipidemia) Code(s): E78.5 - HYPERLIPIDEMIA, UNSPECIFIED (3) Anemia Assessment/Plan: follow labs todays pending Code(s): D64.9 - ANEMIA, UNSPECIFIED
[2020-02-24 11:35] VITALS: BP 142/72; PULSE 81; TEMP 98.2
== END 2020-02-24 12:36 | disposition home or self-care (01) | DRG 743 ==
LOC: J2C 02-21 07:26 → J8W 02-21 15:28
PROVIDERS: ADMIT Obstetrics & Gynecology; ATTEND Obstetrics & Gynecology
PROC: 0JQC3ZZ Repair Pelvic Region Subcutaneous Tissue and Fascia, Percutaneous Approach (ICD-10-PCS; 2020-02-21)
PROC: 0UT97ZZ Resection of Uterus, Via Natural or Artificial Opening (ICD-10-PCS; principal; 2020-02-21 09:00)
PROC: 0WQN0ZZ Repair Female Perineum, Open Approach (ICD-10-PCS; 2020-02-21 09:00)
PROC: 0JQC3ZZ Repair Pelvic Region Subcutaneous Tissue and Fascia, Percutaneous Approach (ICD-10-PCS; 2020-02-21 09:00)
DX: N81.3 Complete uterovaginal prolapse (principal); E78.5 Hyperlipidemia, unspecified; D64.9 Anemia, unspecified; K80.80 Other cholelithiasis without obstruction
CPT/HCPCS: 36415; 80048; 80053; 85025; 85027; 86850; 86900; 86901; 88305-TC; 88307-TC; 94760; J1756

== ENCOUNTER 2021-05-14 05:47 | Day surgery (SDC) | payer OTHER, BC ==
[2021-05-07 09:45] VITALS: BMI 28.1
[2021-05-14] MEDS ORDERED: CEFAZOLIN 2 GM in DEXTROSE 5%-WATER - 50 ML IVPB ONE (06:40)
[2021-05-14] MEDS: CELECOXIB 200 MG CAPSULE PO ONE (06:55)
[2021-05-14] MEDS ORDERED: ceFAZolin SODIUM 1 GM VIAL ONE (07:18)
[2021-05-14] MEDS ORDERED: VANCOMYCIN 1,000 MG VIAL (RESTRICTED TO ID ONLY) ONE (07:18)
[2021-05-14] MEDS ORDERED: THROMBIN (BOVINE) 5,000 UNIT VIAL TP ONE ×2 (07:43→09:14)
[2021-05-14] MEDS ORDERED: MIDAZOLAM HCL 2 MG/2 ML SINGLE DOSE VIAL ONE (07:44)
[2021-05-14] MEDS ORDERED: ROPIVACAINE HCL 0.5% 30ML VIAL ONE (07:45)
[2021-05-14] MEDS ORDERED: LIDOCAINE HCL/PF 2% SDV 5ML VIAL ONE ×2 (07:46→07:47)
[2021-05-14] MEDS ORDERED: BUPIVICAINE 0.25%/MORPH PF/KETOROLAC - 51ML DISP.SYRINGE IA ONE ×3 (08:00→09:44)
[2021-05-14] MEDS ORDERED: TRANEXAMIC ACID 1000 MG/10 ML VIAL IVPUSH ONE (08:00)
[2021-05-14] MEDS ORDERED: MAG HYDROX/AL HYDROX/SIMETH 30 ML UNIT-DOSE CUP PO PRN (08:06)
[2021-05-14] MEDS ORDERED: ONDANSETRON 4 MG/2 ML VIAL IVPUSH PRN (08:06)
[2021-05-14] MEDS ORDERED: LACTATED RINGERS SOLUTION 1,000 ML IV SCH (08:15)
[2021-05-14] MEDS ORDERED: MORPHINE 5 MG/10 ML AMP - FOR COMPOUNDING USE ONLY ONE (08:30)
[2021-05-14] MEDS ORDERED: PROPOFOL 20 ML ONE (09:09)
[2021-05-14] MEDS ORDERED: oxyCODONE HCL 5 MG TABLET PO PRN (09:15)
[2021-05-14] MEDS: CEFAZOLIN 2 GM/D5W 2 GM/50 ML ML IVPB SCH (15:04)
[2021-05-14] MEDS: oxyCODONE HCL 5 MG TABLET PO PRN ×2 (15:04→21:37)
[2021-05-14] MEDS: SENNOSIDES/DOCUSATE COMBO (SENNA PLUS) TABLET (UD) PO SCH (21:37)
[2021-05-14] MEDS ORDERED: ATORVASTATIN CA 10 MG TABLET (FP) PO SCH (22:00)
[2021-05-15] MEDS: CEFAZOLIN 2 GM/D5W 2 GM/50 ML ML IVPB SCH (00:25)
[2021-05-15] MEDS: oxyCODONE HCL 5 MG TABLET PO PRN ×4 (03:16→15:29)
[2021-05-15] MEDS ORDERED: ASPIRIN 325 MG TABLET PO SCH (08:00)
[2021-05-15] MEDS: CELECOXIB 200 MG CAPSULE PO ONE (08:04)
[2021-05-15] MEDS: MULTIVITAMINS (DAILY MVI) TABLET (FP) PO SCH ×2 (08:05→10:14)
[2021-05-15] MEDS: PANTOPRAZOLE 40 MG TABLET PO SCH ×2 (08:05→10:13)
[2021-05-15] MEDS: SENNOSIDES/DOCUSATE COMBO (SENNA PLUS) TABLET (UD) PO SCH (10:13)
[2021-05-15 14:21] VITALS: BP 138/49; PULSE 74; TEMP 99.3
== END 2021-05-15 17:52 | disposition home health service (06) ==
LOC: FASU 05:47 → FASUSAT 05:47 → FM/S 13:02 → FASUSAT 05-15 17:52
PROVIDERS: ATTEND Orthopaedic Surgery
PROC: 8E0YXBZ Computer Assisted Procedure of Lower Extremity (ICD-10-PCS; 2021-05-14)
PROC: 8E0Y0CZ Robotic Assisted Procedure of Lower Extremity, Open Approach (ICD-10-PCS; 2021-05-14)
PROC: 0SRD0L9 Replacement of Left Knee Joint with Medial Unicondylar Synthetic Substitute, Cemented, Open Approach (ICD-10-PCS; principal; 2021-05-14 08:54)
DX: M17.12 Unilateral primary osteoarthritis, left knee (principal)
CPT/HCPCS: 20985; 27446; C1776; S2900; 73560-TC-LT-FY; 94760; 97010-GP; 97116-GP; 97162-GP

== ENCOUNTER 2021-05-21 09:41 | Emergency (ER) | payer OTHER, BC ==
[2021-05-21 10:09] VITALS: TEMP 97.8; BMI 25.4
[2021-05-21 11:06] LABS: BASO % 0.5 % (0-2.0); EOS % 7.3 % (0-4.5); HEMOGLOBIN 11.7 GM/dL (10.7-15.3); LYMPH % 19.9 % (8-40); MCH 29.2 pg (25.7-33.7); MCHC 34.5 g/dl (32.0-36.0); MEAN CELL VOLUME 84.8 fl (80-96); MEAN PLT VOLUME 6.9 fl (7.5-11.1); MONO % 9.3 % (3.8-10.2); PLATELET COUNT 337 10^3/uL (134-434); RDW 13.2 % (11.6-15.6); WHITE BLOOD COUNT 6.3 K/mm3 (4.0-10.0)
[2021-05-21 11:14] LABS: INR 1.03 (0.83-1.09); PROTHROMBIN TIME (PATIENT) 12.7 SEC (9.7-13.0)
[2021-05-21 11:29] LABS: CHLORIDE 99 mmol/L (98-107); SODIUM 132 mmol/L (136-145)
[2021-05-21 11:32] LABS: ALBUMIN 3.7 g/dl (3.4-5.0)
[2021-05-21 11:33] LABS: BLOOD UREA NITROGEN 9.6 mg/dL (7-18); CALCIUM 9.1 mg/dL (8.5-10.1)
[2021-05-21 11:34] LABS: ANION GAP 4 MMOL/L (8-16); CO2 29 mmol/L (21-32); GLUCOSE,RANDOM 99 mg/dL (74-106)
[2021-05-21 11:36] LABS: SGOT/AST 19 U/L (15-37); SGPT/ALT 36 U/L (13-61)
[2021-05-21 11:37] LABS: CREATININE 0.5 mg/dL (0.55-1.3)
[2021-05-21 11:38] LABS: BILIRUBIN,TOTAL 0.5 mg/dL (0.2-1); TOT PROT 7.1 g/dl (6.4-8.2)
[2021-05-21 11:39] LABS: ALK PHOS 70 U/L (45-117)
[2021-05-21 16:27] VITALS: BP 119/65; PULSE 82
== END 2021-05-21 16:40 | disposition home or self-care (01) ==
LOC: JER 09:41
DX: R07.9 Chest pain, unspecified (principal)
CPT/HCPCS: 36415; 71275-TC; 80053; 82550; 84484; 85025; 85610; 85730; 93005; 93010; 99284-25; Q9967

== ENCOUNTER 2022-03-21 12:07 | Emergency (ER) | payer OTHER, BC ==
[2022-03-21 12:19] VITALS: BP 142/74; PULSE 72; RESP 18; TEMP 99.1; BMI 23.8
[2022-03-21] MEDS ORDERED: BEBTELOVIMAB (EUA) 175 MG/2 ML VIAL IVPUSH ONE (12:30)
== END 2022-03-21 14:03 | disposition home or self-care (01) ==
LOC: JCOVINFU 12:07 → JER 12:07 → JCOVINFU 14:03
DX: U07.1 COVID-19 (principal)
CPT/HCPCS: 99284-25; M0222; Q0222